=== PATIENT | female | born 1975 | race Caucasian/White ===

== ENCOUNTER 2019-03-26 11:08 | Day surgery (SDC) | payer OTHER ==
[2019-03-25 11:58] VITALS: BMI 29.7
[~2019-03-26 11:08] MED LIST: DEXAMETHASONE SOD PHOSPHATE 10 MG/ML 1 ML VIAL IV ONE; HYDROmorphone 0.5 MG/0.5 ML SYRINGE IVP PRN; LACTATED RINGERS 1,000 ML IV SCH; LIDOCAINE 1% (10MG/ML) FOR IV START INTRADERMA PRN; MIDAZOLAM 2 MG/2 ML VIAL IV PRN; ONDANSETRON 4 MG/2 ML VIAL IVP ONE; Pre Op ABX Message 1 EACH MISC MISCELLANE ONE; SCOPOLAMINE 1.5MG/72HR PATCH TRANSDERM ONE
[2019-03-26 11:39] VITALS: TEMP 98.1
[2019-03-26] MEDS ORDERED: MIDAZOLAM 2 MG/2 ML VIAL ONE (13:30)
[2019-03-26] MEDS ORDERED: ceFAZolin 1,000 MG VIAL ONE (13:30)
[2019-03-26] MEDS ORDERED: SUCCINYLCHOLINE CHLORIDE 100 MG/5 ML SYR IV ONE (13:30)
[2019-03-26] MEDS ORDERED: SODIUM CHLORIDE 0.9% 100 ML BAG ONE (13:30)
[2019-03-26] MEDS ORDERED: PROPOFOL 10 MG/ML 20 ML VIAL IV ONE (13:30)
[2019-03-26] MEDS ORDERED: LIDOCAINE 1% INJ 10MG/ML (20 ML MDV) ONE (13:30)
[2019-03-26] MEDS ORDERED: fentaNYL (PF) 50 MCG/ML 2 ML AMP ONE (13:30)
[2019-03-26] MEDS ORDERED: BUPIVACAINE-EPI 0.5%-1:200,000 10 ML VIAL SQ ONE ×2 (14:03)
[2019-03-26 14:39] VITALS: RESP 16
[2019-03-26 15:49] VITALS: BP 127/86; PULSE 88
--- NOTE | 2019-03-26 22:33 | OP ---
OPERATIVE REPORT DATE OF PROCEDURE: 03/26/2019. SURGEON: Waldo Mace M.D. PREOPERATIVE DIAGNOSES: 1. Right knee tricompartmental chondromalacia. 2. Right knee large intra-articular loose body in the anterior compartment of the knee. POSTOPERATIVE DIAGNOSES: 1. Right knee tricompartmental chondromalacia. 2. Right knee large intra-articular loose body in the anterior compartment of the knee. PROCEDURE PERFORMED: Right knee arthroscopic loose body removal. ANESTHESIA: General endotracheal. ESTIMATED BLOOD LOSS: Minimal. TOURNIQUET: None. DRAINS: None. COMPLICATIONS: None apparent. DISPOSITION: Postanesthesia care unit. INDICATIONS: Melody is a very pleasant 43-year-old female who presented to my office with right knee pain. Physical examination and x-rays are consist with fairly advanced chondromalacia of the knee, tricompartmental chondromalacia of the knee, but also a very large osseous loose body in the anterior compartment of the knee. She complains of frequent catching, locking, which when happens is relatively excruciating for her. Given her very young age with regard to proceeding with a total knee arthroplasty and her history of more mechanical symptoms in the knee, which could be certainly attributable to this large loose body, we made a recommendation for arthroscopic loose body removal. The risks were explained to the patient which include, but are not limited to risk of infection, nerve damage, bleeding, pain, and a small risk of deep vein thrombosis which could lead to fatal pulmonary embolism. She understands that there is no guarantee of this to improve her symptoms. An appropriate informed conformed consent was obtained. Examination under anesthesia: Range of motion: Right full, left full. Effusion: Right mild, left none. Jessica: Right with good end point, left with good end point. Pivot shift: Right grade 0, left grade 0. Posterior drawer: Right normal with good end point. Left normal with good end point. Varus laxity: Right none, left none. Valgus laxity: Right none, left none. External rotation: Right normal and left normal. ARTHROSCOPIC FINDINGS: Suprapatellar pouch was normal. Medial gutter normal. Lateral gutter normal. Patella: Diffuse grade 2 change. Trochlea: Diffuse grade 2 change. Medial femoral condyle. Diffuse grade 3 change, medial tibial plateau grade 4 change, medial meniscus was normal. Lateral femoral condyle diffuse grade 2-3 change. Lateral tibial plateau: Small areas of grade 4 change. Lateral meniscus was normal. Anterior cruciate ligament normal. Posterior cruciate ligament normal. Infrapatellar notch 1.5 cm osseous loose body and thickened infrapatellar plica. DETAILS OF PROCEDURE: Patient identified in preop holding area. Surgical site was marked by both the patient and myself. She was given 1 g of Ancef IV for prophylactic purposes. She was then transported to the operative suite. She was placed supine on the operative table. General anesthetic was then administered, dosed per the anesthesia without apparent complication. Examination under anesthesia was then performed of both knees. The findings noted above. The patient's right lower extremity was then prepped and draped in usual sterile fashion. Standard surgical pause undertaken to ensure that we were operating on the correct site and that appropriate preop antibiotics had been given. All staff in the room were in agreement and we proceeded. The knee was then inflated with 120 mL sterile saline solution. This was done to gradually distend the joint. Standard inferolateral portal was then made. A 30 degree arthroscope through the suprapatellar pouch. The arthroscopic pump pressure was set to 60 mmHg, maintained at that level throughout the entire case. Next utilizing an 18- gauge spinal needle to topically localize the placement, the inferomedial port was made under direct visualization. Standard diagnostic arthroscopy of the knee was then performed. The findings noted above. Attention was then drawn to the inferior notch. A very thickened inferior plica. This was released with a biter. She had obvious approximate 1.5 cm osseous loose body in the anterior compartment. I did widen the medial portal and utilized a hemostat to remove the loose body. At this point in time, no further work was deemed necessary. The knee was thoroughly irrigated and drained with an outflow cannula. The scope was removed from the knee. The arthroscopic portals were closed with 3-0 nylon interrupted suture. Sterile compressive dressing was then applied. All sponge and needle counts were deemed correct prior to closure. The patient tolerated procedure without apparent complication. The tourniquet was not inflated throughout the entire procedure. She was transferred recovery room in stable condition. MMODL / IJN: [id number] /
== END 2019-03-26 15:53 | disposition home or self-care (01) ==
LOC: OR 11:08
PROVIDERS: ATTEND Orthopaedic Surgery Sports Medicine
DX: M23.41 Loose body in knee, right knee (principal); M94.261 Chondromalacia, right knee; M17.0 Bilateral primary osteoarthritis of knee; J45.50 Severe persistent asthma, uncomplicated; J43.9 Emphysema, unspecified; G47.36 Sleep related hypoventilation in conditions classified elsewhere; F41.9 Anxiety disorder, unspecified; H91.90 Unspecified hearing loss, unspecified ear; N92.6 Irregular menstruation, unspecified; K29.20 Alcoholic gastritis without bleeding; F17.210 Nicotine dependence, cigarettes, uncomplicated; K21.9 Gastro-esophageal reflux disease without esophagitis; Z88.0 Allergy status to penicillin; Z88.8 Allergy status to other drugs, medicaments and biological substances; Z79.51 Long term (current) use of inhaled steroids; Z79.899 Other long term (current) drug therapy
CPT/HCPCS: 29874; J2250; J1100; J2405; J0690; J2001; J3010; J0330; J2704

== ENCOUNTER 2019-11-27 01:30 | Emergency (ER) | payer OTHER ==
[2019-11-27 01:41] VITALS: RESP 18; TEMP 98.7
[2019-11-27] MEDS ORDERED: DIPH,PERTUS(ACELL)TETVAC-LF 0.5 ML VIAL IM ONE (01:55)
[2019-11-27 02:36] VITALS: BP 111/76; PULSE 76
--- NOTE | 2019-11-27 02:36 | CT ---
EXAM: CT Head Without Intravenous Contrast CLINICAL HISTORY: ITS.REASON CT Reason: Head injury TECHNIQUE: Axial computed tomography images of the head/brain without intravenous contrast. CTDI is 45.285 mGy and DLP is 1064.5 mGy-cm. This CT exam was performed using one or more of the following dose reduction techniques: automated exposure control, adjustment of the mA and/or kV according to patient size, and/or use of iterative reconstruction technique. COMPARISON: No relevant prior studies available. FINDINGS: Brain: Unremarkable. No hemorrhage. No significant white matter disease. No edema. Ventricles: Unremarkable. No ventriculomegaly. Bones/joints: See below. Soft tissues: Left sided scalp laceration and hematoma. No skull fracture is seen. Sinuses: Unremarkable as visualized. No acute sinusitis. Mastoid air cells: Unremarkable as visualized. No mastoid effusion. IMPRESSION: Left scalp laceration and hematoma. No skull fracture or intracranial hemorrhage is seen. EXAM: CT Cervical Spine Without Intravenous Contrast CLINICAL HISTORY: ITS.REASON CT Reason: Head injury TECHNIQUE: Axial computed tomography images of the cervical spine without intravenous contrast. CTDI is 10.585 mGy and DLP is 298.4 mGy-cm. This CT exam was performed using one or more of the following dose reduction techniques: automated exposure control, adjustment of the mA and/or kV according to patient size, and/or use of iterative reconstruction technique. COMPARISON: No relevant prior studies available. FINDINGS: Vertebrae: Mild narrowing and osteophytosis of the atlantodental joint. The odontoid process is intact. No acute fracture. Interspaces: Mild disc space narrowing and osteophytosis at C4-5 and C5-6. Soft tissues: Unremarkable. DISCS/SPINAL CANAL/NEURAL FORAMINA: C2-C3: Unremarkable. No significant disc disease. No stenosis. C3-C4: Unremarkable. No significant disc disease. No stenosis. C4-C5: Mild spinal stenosis at C4-5 measuring 9 mm. C5-C6: Mild to moderate spinal stenosis C5-6 measuring 7 mm. There is moderate bilateral neural foraminal narrowing. C6-C7: Unremarkable. No significant disc disease. No stenosis. C7-T1: Unremarkable. No significant disc disease. No stenosis. IMPRESSION: Mild to moderate degenerative changes in the mid cervical spine. No acute fracture or subluxation is seen.
[2019-11-27] MEDS ORDERED: ACETAMINOPHEN TAB 500 MG TAB PO STA (03:06)
--- NOTE | 2019-11-27 03:08 | ED ---
Fall HPI - General Chief Complaint: Fall Stated Complaint: FALL Time Seen by Provider: 11/27/19 01:40 Source: patient, EMS Mode of arrival: EMS - History of Present Illness Initial Comments: 44-year-old female patient presents to the emergency department today for evaluation of head injury. Patient admits to drinking alcohol today. States she had a fall. She does not recall the fall. Believes she may have passed out. She is currently reporting pain to the left side of her head. Denies any neck or back pain. Denies any extremity injury. Denies any use of anticoagulants or antiplatelet medications. Patient denies any chest pain, shortness of breath, dizziness, weakness, abdominal pain, nausea, vomiting, or difficulties with bowel movements or urination. - Related Data Home Medications Medication Instructions Recorded Confirmed Albuterol Inhaler (Mhu) [Ventolin 1 - 2 puff INHALATION RT-Q6H PRN 03/25/19 03/26/19 Hfa Inhaler] Beclomethasone Dip 80 Mcg/Puff 1 puff INHALATION BID 03/25/19 03/26/19 [Qvar 80 mcg] Famotidine [Pepcid] 20 mg PO HS 03/25/19 03/26/19 Ibuprofen [Motrin] 600 mg PO Q8HR PRN 03/25/19 03/26/19 Montelukast [Singulair] 10 mg PO HS 03/25/19 03/26/19 hydrOXYzine pamoate [Vistaril] 25 mg PO HS 03/25/19 03/26/19 Previous Rx's Medication Instructions Recorded Aspirin 325 mg PO DAILY #14 tab 03/26/19 Hydrocodone/Acetaminophen [[place] 1 tab PO Q4-6H PRN #15 tab 03/26/19 5-325] Allergies Allergy/AdvReac Type Severity Reaction Status Date / Time Penicillins Allergy Unknown Hives, Verified 03/26/19 11:39 Fever, Swellingand unknown other reaction Review of Systems ROS Statement: Those systems with pertinent positive or pertinent negative responses have been documented in the HPI. ROS Other: All systems not noted in ROS Statement are negative. Past Medical History Past Medical History: Asthma, GERD/Reflux, Sleep Apnea/CPAP/BIPAP Additional Past Medical History / Comment(s): scoliosis, back pain, frequent diarrhea, wearing brace right knee. History of Any Multi-Drug Resistant Organisms: None Reported Past Surgical History: No Surgical Hx Reported Past Anesthesia/Blood Transfusion Reactions: Motion Sickness Additional Past Anesthesia/Blood Transfusion Reaction / Comment(s): patient has never received anesthesia. Past Psychological History: Anxiety Past Alcohol Use History: Daily Past Drug Use History: None Reported - Past Family History Mother Family Medical History: Unable to Obtain Additional Family Medical History / Comment(s): pt states unknown family hx. General Exam Limitations: no limitations General appearance: alert, in no apparent distress, other (This is a well- developed, well-nourished adult female patient in no acute distress. Vital signs upon presentation are temperature 98.7F, pulse 100, respirations 18. Blood pressure 140/96, pulse ox 96% on room air.) Head exam: Present: other (There is hematoma noted to the left parietal scalp, small abrasion noted. No active bleeding.) Eye exam: Present: normal appearance, PERRL, EOMI. Absent: scleral icterus, conjunctival injection, periorbital swelling ENT exam: Present: normal exam, normal oropharynx, mucous membranes moist Neck exam: Present: normal inspection, full ROM, other (Nontender, no step-off, no deformity to firm midline palpation of the posterior cervical spine. Full range of motion without pain or limitation.). Absent: tenderness, meningismus, lymphadenopathy Respiratory exam: Present: normal lung sounds bilaterally. Absent: respiratory distress, wheezes, rales, rhonchi, stridor Cardiovascular Exam: Present: regular rate, normal rhythm, normal heart sounds. Absent: systolic murmur, diastolic murmur, rubs, gallop, clicks GI/Abdominal exam: Present: soft, normal bowel sounds. Absent: distended, tenderness, guarding, rebound, rigid Back exam: Present: normal inspection, other (Nontender, no step-off, no deformity to firm midline palpation of the thoracic and lumbar vertebrae. Full range of motion without pain or limitation.). Absent: vertebral tenderness Neurological exam: Present: alert, oriented X3, CN II-XII intact Psychiatric exam: Present: normal affect, normal mood Skin exam: Present: warm, dry, intact, normal color. Absent: rash Course Vital Signs 11/27/19 11/27/19 01:31 02:36 Temperature 98.7 F Pulse Rate 100 76 Respiratory 18 18 Rate Blood Pressure 140/96 111/76 O2 Sat by Pulse 96 98 Oximetry Medical Decision Making - Medical Decision Making 44-year-old female patient, intoxicated, presents to the emergency department today for evaluation of head injury. Physical examination did reveal hematoma to the left parietal scalp with small abrasion. No active bleeding. No dental tenderness. She is answering questions appropriately. She is able to ambulate. CT brain and C-spine was obtained and was negative for intracranial hemorrhage or other acute abnormalities. Did show hematoma with laceration changes. Inspection of the scalp did reveal small abrasion. No laceration noted. She'll be discharged with her primary care physician for recheck in 1-2 days. Return parameters were discussed in detail. She verbalizes understanding and agrees this plan. Patient does have a ride home. - Radiology Data Radiology results: report reviewed, image reviewed CT brain without contrast was obtained. Report was reviewed it its entirety. Impression by Dr. Perez shows left scalp laceration hematoma. No skull fracture or intracranial hemorrhage is seen. CT C-spine without contrast was obtained. Report was reviewed in its entirety. Impression by Dr. Perez shows mild to moderate joint of changes in the mid cervical spine. No acute fracture or subluxation is seen. Disposition Clinical Impression: Head injury, Scalp hematoma Disposition: HOME SELF-CARE Condition: Good Instructions (If sedation given, give patient instructions): Head Injury (ED), Hematoma (ED) Additional Instructions: Apply ice to the scalp for swelling. Take Tylenol for pain control. Follow-up with your primary care physician for recheck in 1-2 days. Return to the emergency department immediately for any new, worsening, or concerning symptoms. Is patient prescribed a controlled substance at d/c from ED?: No Referrals: None,Stated [Primary Care Provider] - 1-2 days Time of Disposition: 03:08
== END 2019-11-27 03:38 | disposition home or self-care (01) ==
LOC: EC 01:30
DX: S00.03XA Contusion of scalp, initial encounter (principal); J45.909 Unspecified asthma, uncomplicated; K21.9 Gastro-esophageal reflux disease without esophagitis; G47.30 Sleep apnea, unspecified; F10.129 Alcohol abuse with intoxication, unspecified; F41.9 Anxiety disorder, unspecified; Z23 Encounter for immunization; Z79.899 Other long term (current) drug therapy; Z79.51 Long term (current) use of inhaled steroids; Z99.89 Dependence on other enabling machines and devices; Z88.0 Allergy status to penicillin; W18.39XA Other fall on same level, initial encounter
CPT/HCPCS: 70450; 72125; 90471; 90715; 99284

== ENCOUNTER 2019-12-31 17:06 | Inpatient (IN) | payer MEDICAID, OTHER ==
[2019-12-31 17:16] LABS: Glucose,Whole Blood 124 mg/dL (75-99)
[2019-12-31] MEDS ORDERED: SODIUM CHLORIDE 0.9% 1,000 ML IV STA (17:21)
[2019-12-31] MEDS ORDERED: SODIUM CHLORIDE 0.9% 500 ML 500 ML IV STA (17:21)
--- NOTE | 2019-12-31 17:22 | ED ---
Overdose HPI - General Source: EMS, RN notes reviewed, old records reviewed Mode of arrival: EMS Limitations: no limitations - History of Present Illness MD Complaint: intentional overdose -: unknown Intent: suicide attempt How Overdose Was Discovered: called family/friend Associated Symptoms: depression Treatments Prior to Arrival: none <Parish Leggtet - Last Filed: 12/31/19 20:33> <Yobani Stiles - Last Filed: 01/01/20 02:30> - General Chief Complaint: Overdose Stated Complaint: overdose Time Seen by Provider: 12/31/19 17:08 - History of Present Illness Initial Comments: This is a 44-year-old female intentional overdose. Significant alcohol intoxication severe tramadol overdose tonight. Seizure precautions a prior. Patient is somnolent but responsive, breathing appropriately. Oxygen levels are normal. Patient did take overdose and suicide attempt (Parish Leggett) - Related Data Home Medications Medication Instructions Recorded Confirmed Famotidine [Pepcid] 20 mg PO HS 03/25/19 12/31/19 Ibuprofen [Motrin] 600 mg PO Q8HR PRN 03/25/19 12/31/19 Montelukast [Singulair] 10 mg PO HS 03/25/19 12/31/19 hydrOXYzine pamoate [Vistaril] 25 mg PO BID PRN 03/25/19 12/31/19 Albuterol Sulfate [Ventolin HFA] 2 puff INHALATION RT-Q6H PRN 12/31/19 12/31/19 Beclomethasone Dipropionate [Qvar 1 puff INHALATION RT-BID 12/31/19 12/31/19 80mcg Redihaler] DULoxetine HCL [Cymbalta] 20 mg PO BID 12/31/19 12/31/19 traMADol HCL 50 mg PO Q4-6H PRN 12/31/19 12/31/19 Allergies Allergy/AdvReac Type Severity Reaction Status Date / Time Penicillins Allergy Unknown Hives, Verified 12/31/19 17:51 Fever, Swellingand unknown other reaction Review of Systems ROS Other: All systems not noted in ROS Statement are negative. <Parish Leggett - Last Filed: 12/31/19 20:33> ROS Other: All systems not noted in ROS Statement are negative. <Yobani Stiles - Last Filed: 01/01/20 02:30> ROS Statement: Those systems with pertinent positive or pertinent negative responses have been documented in the HPI. Past Medical History Past Medical History: Asthma, GERD/Reflux, Sleep Apnea/CPAP/BIPAP Additional Past Medical History / Comment(s): scoliosis, back pain, frequent diarrhea, wearing brace right knee. History of Any Multi-Drug Resistant Organisms: None Reported Past Surgical History: No Surgical Hx Reported Past Anesthesia/Blood Transfusion Reactions: Motion Sickness Additional Past Anesthesia/Blood Transfusion Reaction / Comment(s): patient has never received anesthesia. Past Psychological History: Anxiety Smoking Status: Current some day smoker Past Alcohol Use History: Daily Past Drug Use History: None Reported - Past Family History Mother Family Medical History: Unable to Obtain Additional Family Medical History / Comment(s): pt states unknown family hx. <Parish Leggett - Last Filed: 12/31/19 20:33> General Exam Limitations: altered mental status General appearance: alert, appears intoxicated, anxious, lethargic, in distress Head exam: Present: atraumatic, normocephalic, normal inspection Eye exam: Present: normal appearance, PERRL, EOMI. Absent: scleral icterus, co njunctival injection, periorbital swelling ENT exam: Present: normal exam, mucous membranes moist Neck exam: Present: normal inspection. Absent: tenderness, meningismus, lymphadenopathy Respiratory exam: Present: normal lung sounds bilaterally. Absent: respiratory distress, wheezes, rales, rhonchi, stridor Cardiovascular Exam: Present: regular rate, normal rhythm, normal heart sounds. Absent: systolic murmur, diastolic murmur, rubs, gallop, clicks GI/Abdominal exam: Present: soft, normal bowel sounds. Absent: distended, tenderness, guarding, rebound, rigid Extremities exam: Present: normal inspection, full ROM, normal capillary refill. Absent: tenderness, pedal edema, joint swelling, calf tenderness Back exam: Present: normal inspection Neurological exam: Present: alert, oriented X3, CN II-XII intact Psychiatric exam: Present: normal affect, normal mood Skin exam: Present: warm, dry, intact, normal color. Absent: rash <Parish Leggett - Last Filed: 12/31/19 20:33> Course <Parish Leggett - Last Filed: 12/31/19 20:33> <Yobani Stiles - Last Filed: 01/01/20 02:30> Vital Signs 12/31/19 12/31/19 12/31/19 17:08 17:37 21:15 Temperature 98.0 F Pulse Rate 98 101 H 89 Respiratory 16 16 18 Rate Blood Pressure 144/129 139/104 127/84 O2 Sat by Pulse 89 L 96 97 Oximetry 12/31/19 22:49 Temperature Pulse Rate 86 Respiratory 18 Rate Blood Pressure 130/83 O2 Sat by Pulse 97 Oximetry - Reevaluation(s) Reevaluation #1: 12/31/19 20:35 mediclal record reviewed (Parish Leggett) Reevaluation #2: 12/31/19 20:35 Patient medically clear for psychiatric evaluation at midnight tonight (Parish Leggett) Reevaluation #3: 01/01/20 02:29 I did see this patient's conducting interview for purpose of following the clinical certification (Yobani Stiles) Medical Decision Making - Lab Data Result diagrams: 12/31/19 17:24 12/31/19 17:24 - EKG Data -: EKG Interpreted by Me (EKG shows sinus rhythm 100, MO 160 QRS 86 QTc 482) <Parish Leggett - Last Filed: 12/31/19 20:33> - Lab Data Result diagrams: 12/31/19 17:24 12/31/19 17:24 <Yobani Stiles - Last Filed: 01/01/20 02:30> - Lab Data Lab Results 12/31/19 12/31/19 12/31/19 Range/Units 17:14 17:24 17:24 WBC 11.7 H (3.8-10.6) k/uL RBC 5.38 (3.80-5.40) m/uL Hgb 17.3 H (11.4-16.0) gm/dL Hct 51.4 H (34.0-46.0) % MCV 95.7 (80.0-100.0) fL MCH 32.1 (25.0-35.0) pg MCHC 33.5 (31.0-37.0) g/dL RDW 12.8 (11.5-15.5) % Plt Count 165 (150-450) k/uL MPV 11.2 Neutrophils % 62 % Lymphocytes % 28 % Monocytes % 6 % Eosinophils % 1 % Basophils % 2 % Neutrophils # 7.2 (1.3-7.7) k/uL Lymphocytes # 3.3 (1.0-4.8) k/uL Monocytes # 0.7 (0-1.0) k/uL Eosinophils # 0.1 (0-0.7) k/uL Basophils # 0.2 (0-0.2) k/uL Sodium 136 L (137-145) mmol/L Potassium 3.8 (3.5-5.1) mmol/L Chloride 102 (98-107) mmol/L Carbon Dioxide 21 L (22-30) mmol/L Anion Gap 13 mmol/L BUN 6 L (7-17) mg/dL Creatinine 0.44 L (0.52-1.04) mg/dL Est GFR (CKD-EPI)AfAm >90 (>60 ml/min/1.73 sqM) Est GFR (CKD-EPI)NonAf >90 (>60 ml/min/1.73 sqM) Glucose 135 H (74-99) mg/dL POC Glucose (mg/dL) 124 H (75-99) mg/dL POC Glu Floral Clerk ID Kristi Cohn Calcium 9.3 (8.4-10.2) mg/dL Total Bilirubin 0.4 (0.2-1.3) mg/dL AST 40 H (14-36) U/L ALT 62 H (4-34) U/L Alkaline Phosphatase 89 (38-126) U/L Creatine Kinase 29 L (30-135) U/L CK-MB (CK-2) (0.0-2.4) ng/mL Total Protein 7.5 (6.3-8.2) g/dL Albumin 4.4 (3.5-5.0) g/dL Urine HCG, Qual (Not Detectd) Salicylates <1.0 mg/dL Urine Opiates Screen (NotDetected) Ur Oxycodone Screen (NotDetected) Urine Methadone Screen (NotDetected) Ur Propoxyphene Screen (NotDetected) Acetaminophen <10.0 ug/mL Ur Barbiturates Screen (NotDetected) U Tricyclic Antidepress (NotDetected) Ur Phencyclidine Scrn (NotDetected) Ur Amphetamines Screen (NotDetected) U Methamphetamines Scrn (NotDetected) U Benzodiazepines Scrn (NotDetected) Urine Cocaine Screen (NotDetected) U Marijuana (THC) Screen (NotDetected) Serum Alcohol 216 H* mg/dL 12/31/19 12/31/19 12/31/19 Range/Units 17:24 17:36 17:36 WBC (3.8-10.6) k/uL RBC (3.80-5.40) m/uL Hgb (11.4-16.0) gm/dL Hct (34.0-46.0) % MCV (80.0-100.0) fL MCH (25.0-35.0) pg MCHC (31.0-37.0) g/dL RDW (11.5-15.5) % Plt Count (150-450) k/uL MPV Neutrophils % % Lymphocytes % % Monocytes % % Eosinophils % % Basophils % % Neutrophils # (1.3-7.7) k/uL Lymphocytes # (1.0-4.8) k/uL Monocytes # (0-1.0) k/uL Eosinophils # (0-0.7) k/uL Basophils # (0-0.2) k/uL Sodium (137-145) mmol/L Potassium (3.5-5.1) mmol/L Chloride (98-107) mmol/L Carbon Dioxide (22-30) mmol/L Anion Gap mmol/L BUN (7-17) mg/dL Creatinine (0.52-1.04) mg/dL Est GFR (CKD-EPI)AfAm (>60 ml/min/1.73 sqM) Est GFR (CKD-EPI)NonAf (>60 ml/min/1.73 sqM) Glucose (74-99) mg/dL POC Glucose (mg/dL) (75-99) mg/dL POC Glu Floral Clerk ID Calcium (8.4-10.2) mg/dL Total Bilirubin (0.2-1.3) mg/dL AST (14-36) U/L ALT (4-34) U/L Alkaline Phosphatase (38-126) U/L Creatine Kinase (30-135) U/L CK-MB (CK-2) <0.2 (0.0-2.4) ng/mL Total Protein (6.3-8.2) g/dL Albumin (3.5-5.0) g/dL Urine HCG, Qual Not Detected (Not Detectd) Salicylates mg/dL Urine Opiates Screen Not Detected (NotDetected) Ur Oxycodone Screen Not Detected (NotDetected) Urine Methadone Screen Not Detected (NotDetected) Ur Propoxyphene Screen Not Detected (NotDetected) Acetaminophen ug/mL Ur Barbiturates Screen Not Detected (NotDetected) U Tricyclic Antidepress Not Detected (NotDetected) Ur Phencyclidine Scrn Not Detected (NotDetected) Ur Amphetamines Screen Not Detected (NotDetected) U Methamphetamines Scrn Not Detected (NotDetected) U Benzodiazepines Scrn Not Detected (NotDetected) Urine Cocaine Screen Detected H (NotDetected) U Marijuana (THC) Screen Not Detected (NotDetected) Serum Alcohol mg/dL Disposition <Parish Leggett - Last Filed: 12/31/19 20:33> <Yobani Stiles - Last Filed: 01/01/20 02:30> Clinical Impression: Mood disorder Disposition: ADMITTED IP TO THIS [facility] Condition: Fair Referrals: None,Stated [Primary Care Provider] - 1-2 days
[2019-12-31 17:34] LABS: Basophils # (A) 0.2 k/uL (0-0.2); Basophils % (A) 2 %; Eosinophils # (A) 0.1 k/uL (0-0.7); Eosinophils % (A) 1 %; HCT 51.4 % (34.0-46.0); HGB 17.3 gm/dL (11.4-16.0); Lymphocytes # (A) 3.3 k/uL (1.0-4.8); Lymphocytes % (A) 28 %; MCH 32.1 pg (25.0-35.0); MCHC 33.5 g/dL (31.0-37.0); MCV 95.7 fL (80.0-100.0); Mean Platelet Volume 11.2; Monocytes # (A) 0.7 k/uL (0-1.0); Monocytes % (A) 6 %; Neutrophils # (A) 7.2 k/uL (1.3-7.7); Neutrophils % (A) 62 %; Platelet Count 165 k/uL (150-450); RBC 5.38 m/uL (3.80-5.40); RDW 12.8 % (11.5-15.5); WBC 11.7 k/uL (3.8-10.6)
[2019-12-31 17:44] LABS: ALT 62 U/L (4-34); AST 40 U/L (14-36); Acetaminophen <10.0 ug/mL; African American GFR (CKD) >90 (>60 ml/min/1.73 sqM); Albumin 4.4 g/dL (3.5-5.0); Alkaline Phosphatase 89 U/L (38-126); Anion Gap 13 mmol/L; Blood Urea Nitrogen 6 mg/dL (7-17); Calcium 9.3 mg/dL (8.4-10.2); Carbon Dioxide 21 mmol/L (22-30); Chloride 102 mmol/L (98-107); Creatine Kinase 29 U/L (30-135); Glucose 135 mg/dL (74-99); Non-African American GFR(CKD) >90 (>60 ml/min/1.73 sqM); Potassium 3.8 mmol/L (3.5-5.1); Salicylate <1.0 mg/dL; Sodium 136 mmol/L (137-145); Total Bilirubin 0.4 mg/dL (0.2-1.3); Total Protein 7.5 g/dL (6.3-8.2)
[2019-12-31 17:55] LABS: Alcohol 216 mg/dL
[2019-12-31 18:02] LABS: Amphetamine Screen,Urine Not Detected (NotDetected); Barbiturate Screen,Urine Not Detected (NotDetected); Benzodiazepines Screen,Urine Not Detected (NotDetected); Cocaine Screen,Urine Detected (NotDetected); Methadone Screen, Urine Not Detected (NotDetected); Opiate Screen,Urine Not Detected (NotDetected); Oxycodone Screen, Urine Not Detected (NotDetected); Phencyclidine Screen,Urine Not Detected (NotDetected); Tricyclic Antidepressant,Urine Not Detected (NotDetected); Urn Cannabinoid Scrn Not Detected (NotDetected)
[2019-12-31] MEDS ORDERED: NICOTINE 21MG/24HR PATCH TRANSDERM STA (21:08)
[2020-01-01] MEDS ORDERED: hydrOXYzine pamoate 25 MG CAP PO PRN (03:54)
[2020-01-01] MEDS ORDERED: MAGNESIUM HYDROXIDE 2,400 MG/10 ML CUP PO PRN (03:54)
[2020-01-01] MEDS ORDERED: LORazepam 1 MG TAB PO PRN ×2 (03:54→10:11)
[2020-01-01] MEDS ORDERED: IBUPROFEN 600 MG TAB PO PRN (03:54)
[2020-01-01] MEDS ORDERED: MAG HYDROX/AL HYDROX/SIMETH 30 ML CUP PO PRN (03:54)
[2020-01-01] MEDS ORDERED: ALBUTEROL HFA INHALER INHALATION PRN (03:54)
[2020-01-01] MEDS ORDERED: HALOPERIDOL LACTATE 5 MG/ML 1 ML VIAL IM PRN (04:02)
[2020-01-01] MEDS ORDERED: haloperidoL 1 MG TAB PO PRN (04:02)
[2020-01-01] MEDS: FLUTICASONE 110 MCG INHALER INHALATION SCH ×3 (08:24→21:31)
[2020-01-01] MEDS: NICOTINE 21MG/24HR PATCH TRANSDERM SCH (08:25)
[2020-01-01] MEDS ORDERED: DULoxetine HCL 20 MG CAPSULE.DR PO SCH (09:00)
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
[2020-01-01] MEDS: ACAMPROSATE CALCIUM 333 MG TABLET.DR PO SCH ×2 (16:58→21:32)
[2020-01-01] MEDS: MONTELUKAST 10 MG TAB PO SCH (21:32)
[2020-01-01] MEDS: DULoxetine HCL 30 MG CAPSULE.DR PO SCH (21:32)
[2020-01-01] MEDS: FAMOTIDINE 20 MG TAB PO SCH (21:32)
[2020-01-01] MEDS: ACETAMINOPHEN TAB 325 MG TAB PO PRN (21:32)
--- NOTE | 2020-01-01 21:54 | P.CONS ---
History of Present Illness - History of Present Illness This is a pleasant 44 years old female with past medical history of asthma, G ERD, sleep apnea on CPAP and BiPAP, scoliosis with back pain, anxiety and cigarette smoking. Patient was admitted to the mental health unit for signs symptoms of major depressive disorders with alcohol and nicotine abuse. Medical consult was requested for routine medical management. Patient was lying in bed, looks depressed, minimally interactive however she denies any specific symptoms, no chest pain or dyspnea or change in urine or bowel habits. No fever She admits to smoking 1 pack per day, patient is counseled and she agrees to quit smoking and agrees to nicotine patch She drinks 4-6 beers per day Urine test not detected. Labs showing mild leukocytosis of 11.7 with hemoglobin 17.3, platelet is normal. Most likely hemoconcentration. Sodium is 136, creatinine normal 0.4. Liver enzymes are slightly elevated mostly secondary to alcohol effect. She's been instructed screen is positive for cocaine, alcohol level was elevated at 2.6 on admission, barillas virus not detec gabriel EKG showing normal sinus rhythm at [address]-T changes. Chest x-ray: No acute process. Review of Systems CONSTITUTIONAL: No fever, no malaise, no fatigue. HEENT: No recent visual problems or hearing problems. Denied any sore throat. CARDIOVASCULAR: No orthopnea, PND, no palpitations, no syncope. PULMONARY: No shortness of breath, no cough, no hemoptysis. GASTROINTESTINAL: No diarrhea, no nausea, no vomiting, no abdominal pain. Normoactive bowel sounds. NEUROLOGICAL: No headaches, no weakness, no numbness. HEMATOLOGICAL: Denies any bleeding or petechiae. GENITOURINARY: Denies any burning micturition, frequency, or urgency. MUSCULOSKELETAL/RHEUMATOLOGICAL: Denies any joint pain, swelling, or any muscle pain. ENDOCRINE: Denies any polyuria or polydipsia. Past Medical History Past Medical History: Asthma, GERD/Reflux, Sleep Apnea/CPAP/BIPAP Additional Past Medical History / Comment(s): scoliosis, back pain, frequent diarrhea, wearing brace right knee. History of Any Multi-Drug Resistant Organisms: None Reported Past Surgical History: No Surgical Hx Reported Past Anesthesia/Blood Transfusion Reactions: Motion Sickness Additional Past Anesthesia/Blood Transfusion Reaction / Comm: patient has never received anesthesia. Past Psychological History: Anxiety Smoking Status: Current some day smoker Past Alcohol Use History: Daily Additional Past Alcohol Use History / Comment(s): quit smoking 3 days ago, smoked 1 ppd, started smoking age 9. quit drinking 3 days ago- states she was drinking 4-6 12oz beers daily. Past Drug Use History: None Reported - Past Family History Mother Family Medical History: Unable to Obtain Additional Family Medical History / Comment(s): pt states unknown family hx. Medications and Allergies Home Medications Medication Instructions Recorded Confirmed Type Famotidine [Pepcid] 20 mg PO HS 03/25/19 12/31/19 History Ibuprofen [Motrin] 600 mg PO Q8HR PRN 03/25/19 12/31/19 History Montelukast [Singulair] 10 mg PO HS 03/25/19 12/31/19 History hydrOXYzine pamoate [Vistaril] 25 mg PO BID PRN 03/25/19 12/31/19 History Albuterol Sulfate [Ventolin HFA] 2 puff INHALATION RT-Q6H PRN 12/31/19 12/31/19 History Beclomethasone Dipropionate [Qvar 1 puff INHALATION RT-BID 12/31/19 12/31/19 History 80mcg Redihaler] DULoxetine HCL [Cymbalta] 20 mg PO BID 12/31/19 12/31/19 History traMADol HCL 50 mg PO Q4-6H PRN 12/31/19 12/31/19 History Allergies Allergy/AdvReac Type Severity Reaction Status Date / Time Penicillins Allergy Unknown Hives, Verified 12/31/19 17:51 Fever, Swellingand unknown other reaction Physical Exam Vitals: Vital Signs Temp Pulse Pulse Resp BP BP Pulse Ox 01/01/20 17:06 97.6 F 96 16 130/77 01/01/20 12:57 97.3 F L 01/01/20 06:35 97.6 F 116 H 18 169/92 94 L 01/01/20 02:48 94 18 134/74 96 12/31/19 22:49 86 18 130/83 97 12/31/19 21:15 89 18 127/84 97 Intake and Output 01/01/20 01/01/20 01/01/20 06:59 14:59 22:59 Other: Weight 65.8 kg GENERAL: The patient is alert and oriented x3, not in any acute distress. Well d eveloped, well nourished. HEENT: Pupils are round and equally reacting to light. EOMI. No scleral icterus. No conjunctival pallor. Normocephalic, atraumatic. No pharyngeal erythema. No thyromegaly. CARDIOVASCULAR: S1 and S2 present. No murmurs, rubs, or gallops. PULMONARY: Chest is clear to auscultation, no wheezing or crackles. ABDOMEN: Soft, nontender, nondistended, normoactive bowel sounds. No palpable organomegaly. MUSCULOSKELETAL: No joint swelling or deformity. EXTREMITIES: No cyanosis, clubbing, or pedal edema. NEUROLOGICAL: Gross neurological examination did not reveal any focal deficits. SKIN: No rashes. No petechiae Results CBC & Chem 7: 12/31/19 17:24 12/31/19 17:24 Labs: Abnormal Lab Results - Last 24 Hours (Table) 12/31/19 12/31/19 Range/Units 17:24 17:36 Sodium 136 L (137-145) mmol/L Carbon Dioxide 21 L (22-30) mmol/L BUN 6 L (7-17) mg/dL Creatinine 0.44 L (0.52-1.04) mg/dL Glucose 135 H (74-99) mg/dL AST 40 H (14-36) U/L ALT 62 H (4-34) U/L Creatine Kinase 29 L (30-135) U/L Urine Cocaine Screen Detected H (NotDetected) Serum Alcohol 216 H* mg/dL Assessment and Plan Assessment: -To percussion and other psychiatric illnesses, management as per primary site team -Nicotine dependence, patient is counseled, continue with nicotine -Alcohol abuse, continue with CIWA protocol and thiamin -Mild leukocytosis, mostly hemoconcentration. Patient is mildly dehydration and encourage oral hydration -Mildly elevated liver enzymes, mostly secondary to alcohol effect Chronic asthma, not in activation History of GERD sleep apnea scoliosis with chronic back pain DVT prophylaxis: Patient is low risk as she is mobile, no need for heparin continue with mechanical we recommend patient follow up with her PCP within one week after discharge, patient was instructed with the same Labs. Repeat CBC and liver enzymes. Thank you for consulting us, we will see the patient on as needed basis. Please feel free to contact us for any further questions
[2020-01-01 22:38] LABS: Basophils # (A) 0.1 k/uL (0-0.2); Basophils % (A) 1 %; Eosinophils # (A) 0.2 k/uL (0-0.7); Eosinophils % (A) 2 %; HCT 45.3 % (34.0-46.0); HGB 14.6 gm/dL (11.4-16.0); Lymphocytes # (A) 2.2 k/uL (1.0-4.8); Lymphocytes % (A) 21 %; MCH 31.1 pg (25.0-35.0); MCHC 32.3 g/dL (31.0-37.0); MCV 96.3 fL (80.0-100.0); Mean Platelet Volume 11.2; Monocytes # (A) 0.7 k/uL (0-1.0); Monocytes % (A) 7 %; Neutrophils # (A) 7.4 k/uL (1.3-7.7); Neutrophils % (A) 68 %; Platelet Count 133 k/uL (150-450); RDW 13.1 % (11.5-15.5); WBC 10.8 k/uL (3.8-10.6)
[2020-01-01 22:43] LABS: ALT 47 U/L (4-34); AST 35 U/L (14-36); Albumin 3.1 g/dL (3.5-5.0); Alkaline Phosphatase 80 U/L (38-126); Bilirubin, Delta 0.1 mg/dL (0.0-0.2); Bilirubin,Unconjugated 0.3 mg/dL (0.0-1.1); Total Bilirubin 0.4 mg/dL (0.2-1.3); Total Protein 5.5 g/dL (6.3-8.2)
[2020-01-01 23:16] LABS: HCG,Qualitative Serum Not Detected
[2020-01-02 00:34] LABS: Large Platelets Present
[2020-01-02] MEDS: THIAMINE 100 MG TAB PO SCH (08:47)
[2020-01-02] MEDS: DULoxetine HCL 30 MG CAPSULE.DR PO SCH (08:47)
[2020-01-02] MEDS: NICOTINE 21MG/24HR PATCH TRANSDERM SCH (08:47)
[2020-01-02] MEDS: MULTIVITAMINS, THERA 1 EACH TAB PO SCH (08:47)
[2020-01-02] MEDS: ACAMPROSATE CALCIUM 333 MG TABLET.DR PO SCH ×3 (08:47→20:35)
[2020-01-02] MEDS: ACETAMINOPHEN TAB 325 MG TAB PO PRN ×2 (08:50→16:24)
[2020-01-02] MEDS: FLUTICASONE 110 MCG INHALER INHALATION SCH ×2 (09:16→20:22)
--- NOTE | 2020-01-02 09:35 | P.PN ---
Progress Note - Text Progress Note Date: 01/02/20 Interval History: Patient was seen wandering the hallways and was directable and agreeable to speak with television writer in the office. She expresses that she feels "eh" and tired. She is not reporting any suicidal or homicidal ideation, intention, and/or plan at this time. She reports no auditory or visual hallucinations. She reports low energy and feeling very sedated. She reports that the pain in her knees is bad but that she has been able to get out of bed and walk around. She has been adherent with her medications and reports some sedation as a side effect. She denies any issues with appetite. She reports sleep is difficult due to the milieu. Mental Status Exam: General Appearance: Patient appears to be stated age is alert, directable, and attempts to cooperate. Patient is short in height. Patient appears disheveled. Behavior: Patient is seated without any agitated behavior. Patient is resting in bed comfortably. Eye contact is fair. Speech: Patient's speech is fluent and nonpressured. Low in volume and spontaneous Mood/Affect: Patient reports their mood is "tired", affect is euthymic with increased range today.. Suicidality/Homicidality: Patient denies any suicidal or homicidal ideation, intention, and/or plan. Perceptions: Patient denies any visual hallucinations and denies any auditory hallucinations Though content/process: There is no evidence of any delusional thought content and thought process is linear and goal-directed. Memory and concentration: AOX3, grossly intact for the purposes of this session. Can spell "WORLD" backwards Judgment and insight: Fair Assessment Major depressive disorder, recurrent, severe Alcohol use disorder Tobacco use disorder Plan: -Patient continues to meet criteria for inpatient psychiatric admission for symptom stabilization and safety. Patient has signed adult voluntary form and medication consent and was placed in patient's chart. -Medications: Increase Cymbalta to 30 mg by mouth every morning, and 60 mg by mouth daily at bedtime to address depression/pain Continue Campral 333 mg 3 times a day for alcohol use disorder Thiamin, multivitamin for Etoh use -When necessary Ativan and Geodon for agitation/aggression. -NRT - nicotine patch -SW on board for discharge planning. Encouraged the patient to participate in milieu.
[2020-01-02] MEDS: DULoxetine HCL 60 MG CAPSULE.DR PO SCH (20:23)
[2020-01-02] MEDS: FAMOTIDINE 20 MG TAB PO SCH (20:23)
[2020-01-02] MEDS: MONTELUKAST 10 MG TAB PO SCH (20:23)
[2020-01-03] MEDS: NICOTINE 21MG/24HR PATCH TRANSDERM SCH (09:01)
[2020-01-03] MEDS: DULoxetine HCL 30 MG CAPSULE.DR PO SCH (09:01)
[2020-01-03] MEDS: ACAMPROSATE CALCIUM 333 MG TABLET.DR PO SCH ×3 (09:01→20:40)
[2020-01-03] MEDS: MULTIVITAMINS, THERA 1 EACH TAB PO SCH (09:01)
[2020-01-03] MEDS: THIAMINE 100 MG TAB PO SCH (09:01)
[2020-01-03] MEDS: FLUTICASONE 110 MCG INHALER INHALATION SCH ×2 (09:01→20:38)
[2020-01-03 09:50] LABS: Albumin 3.7 g/dL (3.5-5.0); Bilirubin, Delta 0.2 mg/dL (0.0-0.2); Bilirubin,Unconjugated 0.4 mg/dL (0.0-1.1); Total Bilirubin 0.6 mg/dL (0.2-1.3); Total Protein 6.4 g/dL (6.3-8.2)
[2020-01-03 13:38] LABS: Hemoglobin A1C 7.1 % (4.0-6.0)
--- NOTE | 2020-01-03 13:50 | P.PN ---
Progress Note - Text Progress Note Date: 01/03/20 Clinical Problems: Major depressive disorder recurrent severe, alcohol use disorder severe, tobacco use disorder Interim history: I reviewed the medical record and interviewed the patient. She denied problems or concerns. She denied that she feels depressed or has thoughts of or suicide. She also denied experiencing alcohol withdrawal symptoms. [facility] assessments were stopped yesterday due to minimal alcohol withdrawal symptoms. She slept 7 hours and has attended therapeutic groups and activities intermittently. Mental status exam: She presented as a short 44-year-old female who was pleasant on approach. She made eye contact and appeared to attend to the interview. She had a sad facial expression. She was alert and oriented to person, place and time. She had psychomotor retardation but no abnormal involuntary movements. Her speech was spontaneous with decreased rate and volume. Her affect was depressed and not reactive. She did not express suicidal ideation or wishes. She did not express ideas reference, paranoid ideation or delusions. Her thinking was concrete. Associations were coherent, logical and goal directed. She did not appear to be responding to internal stimuli. Assessment: She continues to have symptoms of depression currently denying suicidal ideation or wishes. Plan: Continue inpatient treatment. Safety precautions. Continue current medications-Cymbalta 90 mg per day, Vistaril 25 mg twice a day when necessary for anxiety, and Ativan 1 mg by mouth 3 times a day for anxiety and alcohol withdrawal. Encourage participation in therapeutic groups and activities. Evaluate clinical status response to treatment daily basis.
[2020-01-03] MEDS: FAMOTIDINE 20 MG TAB PO SCH (20:39)
[2020-01-03] MEDS: DULoxetine HCL 60 MG CAPSULE.DR PO SCH (20:39)
[2020-01-03] MEDS: MONTELUKAST 10 MG TAB PO SCH (20:39)
[2020-01-04 06:27] VITALS: RESP 17
[2020-01-04] MEDS: NICOTINE 21MG/24HR PATCH TRANSDERM SCH (09:03)
[2020-01-04] MEDS: ACAMPROSATE CALCIUM 333 MG TABLET.DR PO SCH ×3 (09:03→21:05)
[2020-01-04] MEDS: MULTIVITAMINS, THERA 1 EACH TAB PO SCH (09:03)
[2020-01-04] MEDS: DULoxetine HCL 30 MG CAPSULE.DR PO SCH (09:03)
[2020-01-04] MEDS: THIAMINE 100 MG TAB PO SCH (09:03)
[2020-01-04] MEDS: FLUTICASONE 110 MCG INHALER INHALATION SCH ×2 (09:25→21:03)
--- NOTE | 2020-01-04 12:34 | P.PN ---
Progress Note - Text Progress Note Date: 01/04/20 Clinical Problems: Major depressive disorder recurrent severe, alcohol use disorder severe, tobacco use disorder Interim history: I reviewed the medical record and interviewed the patient. She denied problems or concerns. She denied that she feels depressed or has thoughts of or suicide. She also denied experiencing alcohol withdrawal symptoms. She is intermittently attending therapeutic groups and activities. She slept 6 hours last night. Mental status exam: She presented as a short 44-year-old female who was pleasant on approach. She made eye contact and appeared to attend to the interview. She had a sad facial expression. She was alert and oriented to person, place and time. She had psychomotor retardation but no abnormal involuntary movements. Her speech was spontaneous with decreased rate and volume. Her affect was depressed and not reactive. She did not express suicidal ideation or wishes. She did not express ideas reference, paranoid ideation or delusions. Her thinking was concrete. Associations were coherent, logical and goal directed. She did not appear to be responding to internal stimuli. Assessment: She is she appears moderately mentally ill much improved from admission. Plan: Continue inpatient treatment. Safety precautions. Continue current medications-Cymbalta 90 mg per day, Vistaril 25 mg twice a day when necessary for anxiety, and Ativan 1 mg by mouth 3 times a day for anxiety or alcohol withdrawal. Encourage participation in therapeutic groups and activities. Evaluate clinical status response to treatment daily basis.
[2020-01-04] MEDS: MONTELUKAST 10 MG TAB PO SCH (21:05)
[2020-01-04] MEDS: DULoxetine HCL 60 MG CAPSULE.DR PO SCH (21:05)
[2020-01-04] MEDS: FAMOTIDINE 20 MG TAB PO SCH (21:05)
[2020-01-05 06:27] VITALS: BP 112/58; PULSE 58; TEMP 97.7
[2020-01-05] MEDS: ACAMPROSATE CALCIUM 333 MG TABLET.DR PO SCH (08:29)
[2020-01-05] MEDS: DULoxetine HCL 30 MG CAPSULE.DR PO SCH (08:29)
[2020-01-05] MEDS: NICOTINE 21MG/24HR PATCH TRANSDERM SCH (08:29)
[2020-01-05] MEDS: FLUTICASONE 110 MCG INHALER INHALATION SCH (08:29)
[2020-01-05] MEDS: MULTIVITAMINS, THERA 1 EACH TAB PO SCH (08:30)
[2020-01-05] MEDS: THIAMINE 100 MG TAB PO SCH (08:30)
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
== END 2020-01-05 12:56 | disposition home or self-care (01) | DRG 885 ==
LOC: EC 17:06 → 3MHU 01-01 03:53
PROVIDERS: ADMIT Psychiatry & Neurology Psychiatry; ATTEND Psychiatry & Neurology Psychiatry
DX: F33.2 Major depressive disorder, recurrent severe without psychotic features (principal); Z20.828 Contact with and (suspected) exposure to other viral communicable diseases; F10.220 Alcohol dependence with intoxication, uncomplicated; T40.422A Poisoning by tramadol, intentional self-harm, initial encounter; G47.30 Sleep apnea, unspecified; K21.9 Gastro-esophageal reflux disease without esophagitis; F17.210 Nicotine dependence, cigarettes, uncomplicated; J45.909 Unspecified asthma, uncomplicated; M41.9 Scoliosis, unspecified; F41.9 Anxiety disorder, unspecified; Y90.7 Blood alcohol level of 200-239 mg/100 ml; E86.0 Dehydration; R74.8 Abnormal levels of other serum enzymes; G89.29 Other chronic pain; D72.829 Elevated white blood cell count, unspecified; Z71.6 Tobacco abuse counseling; Z79.899 Other long term (current) drug therapy; Z88.0 Allergy status to penicillin
CPT/HCPCS: 36415; 80053; 80061; 80076; 80306; 80320; 80329; 81025; 82550; 82553; 83036; 83520; 84443; 84703; 85025; 87635; 93005; 96360; 99285

== ENCOUNTER 2020-07-15 18:13 | Inpatient (IN) | payer OTHER ==
[2020-07-15] MEDS ORDERED: ASPIRIN 81 MG PO STA (19:00)
[2020-07-15] MEDS ORDERED: NITROGLYCERIN OINT 1 INCH/GM PACKET TOPICAL STA (19:00)
--- NOTE | 2020-07-15 19:05 | ED ---
General Adult HPI - General Chief complaint: Chest Pain Stated complaint: Chest pain/sob Time Seen by Provider: 07/15/20 18:35 Source: patient, RN notes reviewed, old records reviewed Mode of arrival: ambulatory Limitations: no limitations - History of Present Illness Initial comments: This is a 45-year-old female comes emergency Department complaining of left- sided chest pain which started yesterday has been intermittent ever since but patient states when it comes it lasts for 20 minutes to 30 minutes at a time. Patient states she does feel short of breath when it comes. Patient denies any nausea or vomiting. Patient states she is a smoker. Patient denies any diabetes hypertension high cholesterol. Patient denies any previous history of heart disease. Patient does not know what her family history is. Patient denies any recent fever chills per patient denies any trauma. Patient denies any swelling to the legs or calf tenderness. Patient states occasionally she's had some abdominal pain as well. - Related Data Home Medications Medication Instructions Recorded Confirmed Famotidine [Pepcid] 20 mg PO BID 03/25/19 07/15/20 Ibuprofen [Motrin] 600 mg PO Q8HR PRN 03/25/19 07/15/20 Montelukast [Singulair] 10 mg PO HS 03/25/19 07/15/20 Albuterol Sulfate [Ventolin HFA] 2 puff INHALATION RT-Q4H PRN 12/31/19 07/15/20 Cymbalta 1 dose PO DIRECTED 07/15/20 07/15/20 Allergies Allergy/AdvReac Type Severity Reaction Status Date / Time Penicillins Allergy Unknown Hives, Verified 07/15/20 20:18 Fever, Swellingand unknown other reaction Review of Systems ROS Statement: Those systems with pertinent positive or pertinent negative responses have been documented in the HPI. ROS Other: All systems not noted in ROS Statement are negative. Past Medical History Past Medical History: Asthma, GERD/Reflux, Sleep Apnea/CPAP/BIPAP Additional Past Medical History / Comment(s): scoliosis, back pain, frequent diarrhea, wearing brace right knee. History of Any Multi-Drug Resistant Organisms: None Reported Past Surgical History: No Surgical Hx Reported Past Anesthesia/Blood Transfusion Reactions: Motion Sickness Additional Past Anesthesia/Blood Transfusion Reaction / Comment(s): patient has never received anesthesia. Past Psychological History: Anxiety Smoking Status: Current some day smoker Past Alcohol Use History: Daily Past Drug Use History: None Reported - Past Family History Mother Family Medical History: Unable to Obtain Additional Family Medical History / Comment(s): pt states unknown family hx. General Exam - General Exam Comments Initial Comments: GENERAL: Patient is well-developed and well-nourished. Patient is nontoxic and well-h ydrated and is in mild distress. ENT: Neck is soft and supple. No significant lymphadenopathy is noted. Oropharynx is clear. Moist mucous membranes. Neck has full range of motion without eliciting any pain. EYES: The sclera were anicteric and conjunctiva were pink and moist. Extraocular move ments were intact and pupils were equal round and reactive to light. Eyelids were unremarkable. PULMONARY: Unlabored respirations. Good breath sounds bilaterally. No audible rales rhonchi or wheezing was noted. CARDIOVASCULAR: There is a regular rate and rhythm without any murmurs gallops or rubs. ABDOMEN: Soft and nontender with normal bowel sounds. SKIN: Skin is clear with no lesions or rashes and otherwise unremarkable. NEUROLOGIC: Patient is alert and oriented x3. Cranial nerves II through XII are grossly intact. Motor and sensory are also intact. Normal speech, volume and content. Symmetrical smile. MUSCULOSKELETAL: Normal extremities with adequate strength and full range of motion. No lower extremity swelling or edema. No calf tenderness. LYMPHATICS: No significant lymphadenopathy is noted PSYCHIATRIC: Normal psychiatric evaluation. Limitations: no limitations Course Vital Signs 07/15/20 18:35 Temperature 98.4 F Pulse Rate 88 Respiratory 20 Rate Blood Pressure 159/98 O2 Sat by Pulse 96 Oximetry Medical Decision Making - Medical Decision Making EKG shows normal sinus rhythm at 70 bpm VA interval is 134 QRS is 82 QT interval 420 QTC is 470. Patient's EKG shows flipped T waves in V1 through V5. Chest x-ray shows no acute abnormality. Patient had elevated troponin with new changes on EKG therefore started the patient heparin. I spoke with [facility] agreed to admit the patient admitted the patient wrote admitting her thigh consulted cardiology and I continued heparin and aspirin Nitropaste on the floor. - Lab Data Result diagrams: 07/15/20 19:00 07/15/20 19:00 Lab Results 07/15/20 07/15/20 07/15/20 Range/Units 19:00 19:00 19:00 WBC 9.4 (3.8-10.6) k/uL RBC 5.50 H (3.80-5.40) m/uL Hgb 17.1 H (11.4-16.0) gm/dL Hct 52.1 H (34.0-46.0) % MCV 94.8 (80.0-100.0) fL MCH 31.0 (25.0-35.0) pg MCHC 32.8 (31.0-37.0) g/dL RDW 14.1 (11.5-15.5) % Plt Count 140 L (150-450) k/uL MPV 11.5 Neutrophils % 65 % Lymphocytes % 25 % Monocytes % 4 % Eosinophils % 2 % Basophils % 1 % Neutrophils # 6.1 (1.3-7.7) k/uL Lymphocytes # 2.3 (1.0-4.8) k/uL Monocytes # 0.4 (0-1.0) k/uL Eosinophils # 0.2 (0-0.7) k/uL Basophils # 0.1 (0-0.2) k/uL PT 10.5 (9.0-12.0) sec INR 1.0 (<1.2) APTT 22.4 (22.0-30.0) sec Sodium 136 L (137-145) mmol/L Potassium 3.9 (3.5-5.1) mmol/L Chloride 103 (98-107) mmol/L Carbon Dioxide 18 L (22-30) mmol/L Anion Gap 15 mmol/L BUN 7 (7-17) mg/dL Creatinine 0.42 L (0.52-1.04) mg/dL Est GFR (CKD-EPI)AfAm >90 (>60 ml/min/1.73 sqM) Est GFR (CKD-EPI)NonAf >90 (>60 ml/min/1.73 sqM) Glucose 145 H (74-99) mg/dL Calcium 9.8 (8.4-10.2) mg/dL Magnesium 2.0 (1.6-2.3) mg/dL Total Bilirubin 0.2 (0.2-1.3) mg/dL AST 52 H (14-36) U/L ALT 65 H (4-34) U/L Alkaline Phosphatase 89 (38-126) U/L Troponin I (0.000-0.034) ng/mL Total Protein 6.9 (6.3-8.2) g/dL Albumin 4.3 (3.5-5.0) g/dL Lipase 93 (23-300) U/L 07/15/20 Range/Units 19:00 WBC (3.8-10.6) k/uL RBC (3.80-5.40) m/uL Hgb (11.4-16.0) gm/dL Hct (34.0-46.0) % MCV (80.0-100.0) fL MCH (25.0-35.0) pg MCHC (31.0-37.0) g/dL RDW (11.5-15.5) % Plt Count (150-450) k/uL MPV Neutrophils % % Lymphocytes % % Monocytes % % Eosinophils % % Basophils % % Neutrophils # (1.3-7.7) k/uL Lymphocytes # (1.0-4.8) k/uL Monocytes # (0-1.0) k/uL Eosinophils # (0-0.7) k/uL Basophils # (0-0.2) k/uL PT (9.0-12.0) sec INR (<1.2) APTT (22.0-30.0) sec Sodium (137-145) mmol/L Potassium (3.5-5.1) mmol/L Chloride (98-107) mmol/L Carbon Dioxide (22-30) mmol/L Anion Gap mmol/L BUN (7-17) mg/dL Creatinine (0.52-1.04) mg/dL Est GFR (CKD-EPI)AfAm (>60 ml/min/1.73 sqM) Est GFR (CKD-EPI)NonAf (>60 ml/min/1.73 sqM) Glucose (74-99) mg/dL Calcium (8.4-10.2) mg/dL Magnesium (1.6-2.3) mg/dL Total Bilirubin (0.2-1.3) mg/dL AST (14-36) U/L ALT (4-34) U/L Alkaline Phosphatase (38-126) U/L Troponin I 0.047 H* (0.000-0.034) ng/mL Total Protein (6.3-8.2) g/dL Albumin (3.5-5.0) g/dL Lipase (23-300) U/L Critical Care Time Critical Care Time: Yes Total Critical Care Time: 35 Disposition Clinical Impression: Unstable angina pectoris Disposition: ADMITTED IP TO THIS HOSP Referrals: Tracey Freire MD [Primary Care Provider] - 1-2 days Time of Disposition: 20:31
[2020-07-15 19:54] LABS: Basophils # (A) 0.1 k/uL (0-0.2); Basophils % (A) 1 %; Eosinophils # (A) 0.2 k/uL (0-0.7); Eosinophils % (A) 2 %; HCT 52.1 % (34.0-46.0); HGB 17.1 gm/dL (11.4-16.0); Lymphocytes # (A) 2.3 k/uL (1.0-4.8); Lymphocytes % (A) 25 %; MCHC 32.8 g/dL (31.0-37.0); MCV 94.8 fL (80.0-100.0); Mean Platelet Volume 11.5; Monocytes # (A) 0.4 k/uL (0-1.0); Monocytes % (A) 4 %; Neutrophils # (A) 6.1 k/uL (1.3-7.7); Neutrophils % (A) 65 %; Platelet Count 140 k/uL (150-450); RDW 14.1 % (11.5-15.5); WBC 9.4 k/uL (3.8-10.6)
[2020-07-15 20:02] LABS: Partial Thromboplastin Time 22.4 sec (22.0-30.0); Prothrombin Time 10.5 sec (9.0-12.0)
[2020-07-15 20:04] LABS: ALT 65 U/L (4-34); AST 52 U/L (14-36); African American GFR (CKD) >90 (>60 ml/min/1.73 sqM); Albumin 4.3 g/dL (3.5-5.0); Alkaline Phosphatase 89 U/L (38-126); Anion Gap 15 mmol/L; Blood Urea Nitrogen 7 mg/dL (7-17); Calcium 9.8 mg/dL (8.4-10.2); Carbon Dioxide 18 mmol/L (22-30); Chloride 103 mmol/L (98-107); Glucose 145 mg/dL (74-99); Lipase 93 U/L (23-300); Non-African American GFR(CKD) >90 (>60 ml/min/1.73 sqM); Potassium 3.9 mmol/L (3.5-5.1); Sodium 136 mmol/L (137-145); Total Bilirubin 0.2 mg/dL (0.2-1.3); Total Protein 6.9 g/dL (6.3-8.2)
--- NOTE | 2020-07-15 20:14 | XR ---
EXAMINATION: XR chest 2V DATE AND TIME: 07/15/2020 8:04 PM CLINICAL INDICATION: PHH; Chest Pain TECHNIQUE: Departmental protocol COMPARISON: None FINDINGS: The overlying soft tissues are prominent. The lungs appear to be clear. The pleural spaces are negative. The cardiac silhouette is not enlarged. The remainder of the mediastinal silhouette is unremarkable. The skeletal structures and soft tissues are negative for acute findings. IMPRESSION: No definite acute radiographic process.
[2020-07-15] MEDS ORDERED: NITROGLYCERIN SL TABS 0.4 MG TAB SUBLINGUAL PRN (20:31)
[2020-07-15] MEDS ORDERED: HEPARIN SODIUM 1,000 UN/ML (10ML VL) IV STA (20:35)
[2020-07-15] MEDS ORDERED: NICOTINE 21MG/24HR PATCH TRANSDERM STA (20:38)
[2020-07-15] MEDS ORDERED: HEPARIN SOD,PORK IN 0.45% NACL 25,000 UNIT in 0.45% NACL 1 250ML.BAG IV SCH (20:45)
[2020-07-16] MEDS: NITROGLYCERIN OINT 1 INCH/GM PACKET TOPICAL SCH ×4 (04:14→17:13)
[2020-07-16] MEDS ORDERED: SODIUM CHLORIDE 0.9% 1,000 ML in EMPTY BAG 1 BAG IV ONE (08:47)
[2020-07-16] MEDS: ASPIRIN 325 MG TAB PO SCH (08:48)
[2020-07-16] MEDS ORDERED: fentaNYL (PF) 50 MCG/ML 2 ML AMP ONE (09:08)
[2020-07-16] MEDS ORDERED: LIDOCAINE 1% INJ 10MG/ML (20 ML MDV) ONE (09:08)
[2020-07-16] MEDS ORDERED: IV FLUID CONTINUATION 500 ML IV ONE (09:14)
[2020-07-16] MEDS: fentaNYL (PF) 50 MCG/ML 2 ML AMP IV ONE ×3 (09:41→10:36)
[2020-07-16] MEDS: MIDAZOLAM 2 MG/2 ML VIAL IV ONE ×4 (09:41→10:30)
[2020-07-16] MEDS ORDERED: LIDOCAINE 1% INJ 10MG/ML (20 ML MDV) SQ ONE (09:41)
[2020-07-16 09:49] LABS: Chol/HDL Ratio 9.23
[2020-07-16] MEDS ORDERED: BIVALIRUDIN BOLUS 250 MG/50 ML IV ONE (10:19)
[2020-07-16] MEDS ORDERED: BIVALIRUDIN 250 MG in SODIUM CHLORIDE 0.9% 50 ML IV ONE (10:21)
[2020-07-16] MEDS: NITROGLYCERIN 1000MCG/10ML SYRINGE INTRACORON ONE ×2 (10:23→10:41)
[2020-07-16] MEDS ORDERED: IOPAMIDOL-370 125ML BTL INJ ONE (10:33)
[2020-07-16] MEDS ORDERED: MORPHINE SULFATE 4 MG/ML SYRINGE ONE (10:37)
[2020-07-16] MEDS ORDERED: FUROSEMIDE 10 MG/ML 4 ML VIAL ONE (10:37)
[2020-07-16] MEDS ORDERED: MORPHINE SULFATE 4 MG/ML SYRINGE IV ONE (10:40)
[2020-07-16] MEDS ORDERED: FUROSEMIDE 10 MG/ML 4 ML VIAL IV ONE (10:41)
[2020-07-16] MEDS ORDERED: PRASUGREL 10 MG TAB ONE (10:43)
[2020-07-16] MEDS ORDERED: PRASUGREL 10 MG TAB PO ONE (10:50)
--- NOTE | 2020-07-16 11:00 | CONS ---
CONSULTATION HISTORY OF PRESENT ILLNESS: Melody is a 45-year-old lady with history of bipolar mood disorder, who presented to the hospital complaining of chest pain. She states that she has been having on and off episodes of chest discomfort for the last one month. She describes it as precordial chest pressure, mild to moderate intensity without definite radiation to neck, arm or back. It is not associated with diaphoresis. There is no history of focal neurological deficits. There is no history of leg edema, PND or orthopnea. Her troponin was elevated on admission at 0.047. The subsequent two have come back as 0.053 and 0.056. Her coronavirus test is negative. EKG shows sinus rhythm with T-wave inversions in the precordial leads suggestive of anterior ischemia. A chest x-ray is unremarkable. The patient did not have any prior cardiac testing. She states that she never had a stress test, echocardiogram or cardiac catheterization. There is no prior history of coronary artery disease or congestive heart failure. Her clinical presentation is consistent with a non ST-segment elevation AL. I am going to obtain a 2D echo to assess her LV function and wall motion and schedule her for cardiac catheterization. She understands risks, benefits and alternatives. PAST MEDICAL HISTORY: Past medical history is significant for asthma and depression and suicidal ideation in the past. MEDICATIONS: Include Cymbalta, Ventolin, Singulair, Motrin, and Pepcid. ALLERGIES: PENICILLIN. FAMILY HISTORY: Is unknown. SOCIAL HISTORY: Significant for smoking, EtOH abuse, and she smokes marijuana. REVIEW OF SYSTEMS: HEENT is unremarkable. Cardiac as described above. Respiratory as described above. GI negative. GENITOURINARY: Negative. Skin negative. Allergy/Immunology: Negative. MUSCULOSKELETAL: Significant for arthritis. Psychosocial negative. Endocrine negative. Derm negative. Constitutional negative. Oncological negative. POSTULANT negative. Rest of the system review is not relevant. EXAM: Patient is afebrile. Heart rate is 81 beats per minute. Blood pressure is 118/66, respiratory rate is 18, O2 saturation is 92% on room air. There is no jugular venous distention. Carotid upstroke is normal. There is no bruit. Chest exam reveals good air entry bilaterally. Heart exam reveals first and second heart sounds. No gallop. No murmur. No rub. Abdomen is soft, nontender. Examination of the extremities did not reveal any edema. Peripheral pulses are palpable. LABORATORY DATA: Lab show a hemoglobin of 17.1, platelet count is 140, potassium is 3.9, creatinine is 0.4. Troponins are mildly elevated. ASSESSMENT: Acute non ST-segment elevation myocardial infarction. PLAN: Patient will undergo cardiac catheterization for further evaluation. JUAN / EDMUND: [id number] /
[2020-07-16] MEDS ORDERED: IOPAMIDOL-370 100ML BTL INJ ONE (11:01)
[2020-07-16] MEDS ORDERED: NITROGLYCERIN SL TABS 0.4 MG TAB SUBLINGUAL PRN (11:09)
[2020-07-16] MEDS ORDERED: MAG HYDROX/AL HYDROX/SIMETH 30 ML CUP PO PRN (11:09)
[2020-07-16] MEDS ORDERED: ATROPINE SULFATE 0.1 MG/ML 10ML SYRINGE IV PRN (11:09)
[2020-07-16] MEDS ORDERED: RX INFO: IV CONTRAST WAS GIVEN 1 EACH MISC MISCELLANE PRN (11:09)
[2020-07-16] MEDS ORDERED: ZOLPIDEM 5 MG TAB PO PRN (11:09)
[2020-07-16] MEDS ORDERED: SODIUM CHLORIDE 0.9% 1,000 ML IV SCH (11:15)
--- NOTE | 2020-07-16 11:16 | CC ---
CARDIAC CATHETERIZATION REPORT INDICATION: Acute non ST-segment elevation AK. PROCEDURE NOTE: After obtaining informed consent, left heart catheterization and coronary angiogram were performed via the right femoral artery using standard Cari catheters. Patient tolerated the procedure well without any obvious immediate complications. Patient received moderate conscious sedation. Total sedation time was 15 minutes. FINDINGS: HEMODYNAMICS: Left ventricular end-diastolic pressure is 8 to 10 mm. There is no significant gradient across the aortic valve. LEFT VENTRICULOGRAM: Not performed. ANGIOGRAPHIC DATA: LEFT MAIN CORONARY ARTERY: Left main coronary artery is a short vessel, but is free of significant stenosis. Divides into left anterior descending coronary artery and circumflex coronary artery. LEFT ANTERIOR DESCENDING CORONARY ARTERY: LAD shows an area of plaque rupture with 90% stenosis in the midportion at the origin of the diagonal branch. CIRCUMFLEX CORONARY ARTERY: Circumflex coronary artery which is a nondominant vessel is free of significant disease. RIGHT CORONARY ARTERY: Right coronary artery is a large dominant vessel that shows a 90% stenosis in the proximal portion. CONCLUSIONS: Severe 2 vessel coronary artery disease as described above. PLAN: Patient will undergo angioplasty with stent placement of these [address] Strange , the available oracle dba. MMODL / IJN: [id number] /
[2020-07-16] MEDS ORDERED: HYDROmorphone 0.5 MG/0.5 ML SYRINGE IVP PRN (11:32)
--- NOTE | 2020-07-16 11:44 | PTCA ---
PERCUTANEOUSTRANS CORORONARY ANGIOGRAPHY PERFORMING PHYSICIAN: Dean Strange MD. PROCEDURE PERFORMED: 1. Successful stenting of the proximal right coronary artery using 4.0 x 18 mm Xience drug-eluting stent with an excellent angiographic results and reduction of stenosis from 90% to 0%. 2. Successful stenting of the mid left anterior descending artery using 2.75 x 12 mm Xience drug-eluting stent which was post-dilated using 3.0 and then 3.25 mm noncompliant balloon with an excellent angiographic result and reduction of stenosis from 90% to 0%. INDICATION: This is a 45-year-old female patient who presented to the hospital with chest discomfort and was seen by Dr. Fung. She was ruled in for acute coronary syndrome. A heart catheterization was performed by Dr. Fung and revealed severe 2 vessel coronary artery disease and because of that, PCI was advised. APPROACH: Right common femoral artery. COMPLICATION: None. LEVEL OF SEDATION: Moderate with sedation length of 42 minutes. PROCEDURE DESCRIPTION: Please refer to the diagnostic heart catheterization was performed by Dr. Fung earlier today. Anticoagulation was initiated using Angiomax. Subsequently, I engaged the RCA using JR4 guide and I wired it using a run-through wire. After that, I did PTCA ballooning using 3.0 x 12 mm balloon before I deployed 4.0 x 18 mm Xience drug-eluting stent where the stent was positioned under fluoroscopy guidance and deployed under 14 atmospheres for 20 seconds. The following angiogram showed excellent angiographic results. For the lesion in the LAD, I did engage the LAD using JL 3.5 guide. I did wire the LAD using a run-through wire. I did predilatation using 2.5 x 12 mm balloon before I deployed 2.75 x 12 mm Xience drug-eluting stent where the stent was positioned under fluoroscopy guidance and deployed under its nominal pressure. The following angiogram showed what seems to be possible thrombus in the middle of the stent. I postdilated the stent using 3.0 and then 3.25 mm balloon. The following angiogram continues to show that density which could be a thrombus, could be also calcified plaque behind the stent. The flow in the LAD was LILO-3 flow and because of that I decided to stop. POSTPROCEDURE MANAGEMENT: 1. Dual anti-platelet therapy. 2. Risk factor modifications. 3. Follow up with the patient. MMODL / IJN: [id number] /
[2020-07-16 15:06] VITALS: BMI 30.3
[2020-07-16] MEDS ORDERED: LORazepam 2 MG/ML INJ IV PRN ×3 (15:20)
--- NOTE | 2020-07-16 16:43 | P.HPIM ---
History of Present Illness H&P Date: 07/16/20 Chief Complaint: chest pain patient is a 45 old female with a known history of chronic back pain, scoliosis, asthma, anxiety, daily alcohol use-2-3 beers thirstier due to complaints of intermittent chest pains for the past1 month. Patient started having chest pain yesterday and called her PCPs office who recommends [facility]. Patient has been having chest pain for the past 1 month lasting about 20 minutes, left retrosternal with associatedmild shortness of breath and nausea. No headache or dizziness or lightheadedness. No leg swelling. Denied any exertional dyspnea.. Patient otherwise drinks an daily basis. Denied any fever or chills. No cough or sputum production. No recent illnesses or sick contacts. No recent travel. chest x-ray showedno acute process. Next and EKG showed normal sinus rhythm. laboratory data showedWBC 9.4, hemoglobin 17.1 and platelets 140 BUN 7 creatinine 0.4 to bicarb is 18 sodium 136 potassium 3.9 chloride 103, AST 52 ALT 65 alk phos 89 Troponin 0.047, 0.053, 0.056, lipase 93 LDL 168 and triglycerides 630 Review of Systems Constitutional: Patient denies any fever or chills . No generalized weakness or weight loss. Abdomen: Patient denied nausea vomiting and diarrhea and abdominal pain. Cardiovascular: patient does have intermittent left retrosternal chest pain and shortness of breath. No palpitations no leg swelling.. Respiratory: patient denied any cough is from production. No shortness of breath Neurologic: Patient denied any numbness or tingling headache. Musculoskeletal: Patient denies any complaints of joint swelling or deformity. Skin: Negative Psychiatric: Negative Endocrine: No heat or cold intolerance. No recent weight gain. Genitourinary: No dysuria or hematuria. All other 14 point ROS negative except the above Past Medical History Past Medical History: Asthma, GERD/Reflux, Sleep Apnea/CPAP/BIPAP Additional Past Medical History / Comment(s): scoliosis, back pain, frequent diarrhea, wearing brace right knee. History of Any Multi-Drug Resistant Organisms: None Reported Past Surgical History: No Surgical Hx Reported Past Anesthesia/Blood Transfusion Reactions: Motion Sickness Additional Past Anesthesia/Blood Transfusion Reaction / Comment(s): patient has never received anesthesia. Past Psychological History: Anxiety Smoking Status: Current some day smoker Past Alcohol Use History: Daily Past Drug Use History: None Reported - Past Family History Mother Family Medical History: Unable to Obtain Additional Family Medical History / Comment(s): pt states unknown family hx. Medications and Allergies Home Medications Medication Instructions Recorded Confirmed Type Famotidine [Pepcid] 20 mg PO BID 03/25/19 07/15/20 History Ibuprofen [Motrin] 600 mg PO Q8HR PRN 03/25/19 07/15/20 History Montelukast [Singulair] 10 mg PO HS 03/25/19 07/15/20 History Albuterol Sulfate [Ventolin HFA] 2 puff INHALATION RT-Q4H PRN 12/31/19 07/15/20 History Cymbalta 1 dose PO DIRECTED 07/15/20 07/15/20 History Allergies Allergy/AdvReac Type Severity Reaction Status Date / Time Penicillins Allergy Unknown Hives, Verified 07/15/20 20:18 Fever, Swellingand unknown other reaction Physical Exam Vitals: Vital Signs Temp Pulse Pulse Resp BP BP Pulse Ox 07/16/20 09:02 97.8 F 81 17 105/64 95 07/16/20 08:00 97.8 F 81 17 105/64 95 07/16/20 06:09 81 17 07/16/20 04:00 97.8 F 81 17 108/66 92 L 07/16/20 02:51 78 18 127/48 97 07/15/20 21:59 94 18 120/79 92 L 07/15/20 21:15 71 16 131/87 96 07/15/20 18:35 98.4 F 88 20 159/98 96 Intake and Output 07/15/20 07/16/20 07/16/20 22:59 06:59 14:59 Intake Total 66.301 Balance 66.301 Intake: Intake, IV Titration 66.301 Amount Heparin Sod,Pork in 0.45% 66.301 NaCl 25,000 unit In 0.45 % NaCl 1 250ml.bag @ 12 UNITS/KG/HR 7.893 mls/hr IV .Q24H [facility] Rx#: [id number] Other: Weight 65.771 kg PHYSICAL EXAMINATION: Patient is lying in the bed comfortably, no acute distress, awake alert and oriented.. HEENT: Normocephalic. Neck is supple. Pupils reactive. Nostrils clear. Oral cavity is moist. Ears reveal no drainage. Neck reveals no JVD, carotid bruits, or thyromegaly. CHEST EXAMINATION: Trachea is central. Symmetrical expansion. Lung altamirano clear to auscultation and percussion. CARDIAC: Normal S1, S2 with no gallops. No murmurs ABDOMEN: Soft.distended, nontender.Bowel sounds normal. No organomegaly. No abdominal bruits. Extremities: reveal no edema. No clubbing or cyanosis Neurologically awake, alert, oriented x3 with well-coordinated movements. No focal deficits noted Skin: No rash or skin lesions. Psychiatric: Coperative. Nonsuicidal Musculoskeletal: No joint swelling or deformity. Normal range of motion. Results CBC & Chem 7: 07/15/20 19:00 07/15/20 19:00 Labs: Abnormal Lab Results - Last 24 Hours (Table) 07/15/20 07/15/20 07/15/20 Range/Units 19:00 19:00 19:00 RBC 5.50 H (3.80-5.40) m/uL Hgb 17.1 H (11.4-16.0) gm/dL Hct 52.1 H (34.0-46.0) % Plt Count 140 L (150-450) k/uL Sodium 136 L (137-145) mmol/L Carbon Dioxide 18 L (22-30) mmol/L Creatinine 0.42 L (0.52-1.04) mg/dL Glucose 145 H (74-99) mg/dL AST 52 H (14-36) U/L ALT 65 H (4-34) U/L Troponin I 0.047 H* (0.000-0.034) ng/mL Triglycerides (0.0-149.0) mg/dL Cholesterol (0-200) mg/dL HDL Cholesterol (40.0-60.0) mg/dL 07/15/20 07/16/20 07/16/20 Range/Units 21:44 01:09 03:29 RBC (3.80-5.40) m/uL Hgb (11.4-16.0) gm/dL Hct (34.0-46.0) % Plt Count (150-450) k/uL Sodium (137-145) mmol/L Carbon Dioxide (22-30) mmol/L Creatinine (0.52-1.04) mg/dL Glucose (74-99) mg/dL AST (14-36) U/L ALT (4-34) U/L Troponin I 0.053 H* 0.056 H* (0.000-0.034) ng/mL Triglycerides 630.0 H (0.0-149.0) mg/dL Cholesterol 240 H (0-200) mg/dL HDL Cholesterol 26.0 L (40.0-60.0) mg/dL Thrombosis Risk Factor Assmnt - DVT/VTE Prophylaxis DVT/VTE Prophylaxis: Pharmacologic Prophylaxis ordered Assessment and Plan Assessment: Acute non-ST elevated [place] status post stent placement Intermittent left retrosternalchest pain for the past 1 month Hyperlipidemia with [id number] Hypertriglyceridemia triglycerides 630 daily alcohol use mild transaminitis Ongoing nicotine addiction Depression/anxiety Chronic back pain and scoliosis DVT prophylaxis with heparin subcu Plan: patient wasstarted on heparin drip and was given a dose of aspirin and statins. Patient was seen by cardiology and was taken to cardiac catheterization and stent placement to RCA and mid LAD. continue with aspirin, atorvastatin and prasugrel. continue with telemetry monitoring and further recommendations based on the clinical course. Monitor for alcohol withdrawal symptoms. Continue with thiamine and multivitamins and PPI. Smoking cessation and alcohol abstinence has been counseled extensively. Time with Patient: Greater than 30
[2020-07-16] MEDS: THIAMINE 100 MG TAB PO SCH (17:46)
[2020-07-16] MEDS: PANTOPRAZOLE 40 MG TABLET PO SCH (17:46)
--- NOTE | 2020-07-16 18:00 | ECHOF ---
Referral Reason: MEASUREMENTS -------- HEIGHT: 129.5 cm WEIGHT: 65.8 kg BP: IVSd: 1.1 cm (0.6 - 1.1) LVIDd: 3.2 cm (3.9 - 5.3) LVPWd: 1.3 cm (0.6 - 1.1) IVSs: 1.6 cm LVIDs: 2.0 cm LVPWs: 1.7 cm Ao Diam: 2.8 cm (2.0 - 3.7) AV Cusp: 1.9 cm (1.5 - 2.6) LA Diam: 2.7 cm (2.7 - 3.8) MV E Daryl: 0.47 m/s MV DecT: 229 ms MV A Daryl: 0.65 m/s MV E/A Ratio: 0.72 RAP: 5.00 mmHg RVSP: 8.98 mmHg FINDINGS -------- This was a technically difficult study with suboptimal views. The left ventricular size is normal. There is mild concentric left ventricular hypertrophy. Overa ll left ventricular systolic function is normal with, an EF between 55 - 60 %. The right ventricle is normal in size. The left atrial size is normal. The right atrial size is normal. 5.0mg of Lumason was utilized for enhancement of images The aortic valve was not well visualized. The mitral valve was not well visualized. There is trace mitral regurgitation. The tricuspid valve was not well visualized. Trace tricuspid regurgitation present. The pulmonic valve was not well visualized. The aortic root size is normal. IVC Not well visulized. There is no pericardial effusion. CONCLUSIONS -------- 1. The left ventricular size is normal. 2. There is mild concentric left ventricular hypertrophy. 3. Overall left ventricular systolic function is normal with, an EF between 55 - 60 %. 4. There is trace mitral regurgitation. 5. Trace tricuspid regurgitation present. 6. There is no pericardial effusion. RUNNER ON: Selina Gracia RDCS
[2020-07-16] MEDS: NICOTINE 21MG/24HR PATCH TRANSDERM SCH (20:27)
[2020-07-16] MEDS: METOPROLOL TARTRATE 25 MG TAB PO SCH (20:27)
[2020-07-16] MEDS: HEPARIN SODIUM,PORCINE/PF 5,000 UNIT/0.5 ML SYRINGE SQ SCH (20:27)
[2020-07-16] MEDS ORDERED: ATORVASTATIN 80 MG TAB PO SCH (21:00)
[2020-07-17] MEDS: NITROGLYCERIN OINT 1 INCH/GM PACKET TOPICAL SCH ×2 (00:54→06:35)
[2020-07-17 05:21] VITALS: RESP 18
[2020-07-17] MEDS: THIAMINE 100 MG TAB PO SCH (06:38)
[2020-07-17] MEDS: PANTOPRAZOLE 40 MG TABLET PO SCH (06:38)
[2020-07-17 08:00] LABS: Basophils # (A) 0.1 k/uL (0-0.2); Basophils % (A) 1 %; Eosinophils # (A) 0.2 k/uL (0-0.7); Eosinophils % (A) 2 %; HCT 47.5 % (34.0-46.0); HGB 16.2 gm/dL (11.4-16.0); Lymphocytes # (A) 1.8 k/uL (1.0-4.8); Lymphocytes % (A) 20 %; MCH 32.3 pg (25.0-35.0); MCV 94.9 fL (80.0-100.0); Mean Platelet Volume 11.5; Monocytes # (A) 0.6 k/uL (0-1.0); Monocytes % (A) 7 %; Neutrophils # (A) 6.4 k/uL (1.3-7.7); Neutrophils % (A) 69 %; Platelet Count 124 k/uL (150-450); RBC 5.01 m/uL (3.80-5.40); RDW 13.3 % (11.5-15.5); WBC 9.2 k/uL (3.8-10.6)
[2020-07-17 08:03] LABS: African American GFR (CKD) >90 (>60 ml/min/1.73 sqM); Anion Gap 4 mmol/L; Blood Urea Nitrogen 7 mg/dL (7-17); Carbon Dioxide 24 mmol/L (22-30); Chloride 107 mmol/L (98-107); Glucose 214 mg/dL (74-99); Non-African American GFR(CKD) >90 (>60 ml/min/1.73 sqM); Potassium 3.8 mmol/L (3.5-5.1); Sodium 135 mmol/L (137-145)
[2020-07-17] MEDS: METOPROLOL TARTRATE 25 MG TAB PO SCH (08:58)
[2020-07-17] MEDS: ASPIRIN 325 MG TAB PO SCH (08:58)
[2020-07-17] MEDS: HEPARIN SODIUM,PORCINE/PF 5,000 UNIT/0.5 ML SYRINGE SQ SCH (08:59)
[2020-07-17] MEDS: NICOTINE 21MG/24HR PATCH TRANSDERM SCH (08:59)
[2020-07-17] MEDS ORDERED: PRASUGREL 10 MG TAB PO STA (11:22)
[2020-07-17 11:26] VITALS: BP 133/81; PULSE 80; TEMP 97.3
--- NOTE | 2020-07-17 11:36 | P.PN ---
Subjective Progress Note Date: 07/17/20 HISTORY OF PRESENT ILLNESS: 45-year-old female who is admitted to the hospital secondary to non-STEMI. Patient underwent cardiac catheterization yesterday with Dr. Olvera. Patient und erwent PCI to the RCA and LAD per Dr. Strange. Patient examined this point the bedside. She denies short of breath. She reports minimal chest discomfort which is significantly improved from yesterday. Vital signs are stable. She has been up ambulating in the room. Telemetry reveals sinus mechanism. Echocardiogram completed revealed ejection fraction 55-60%, trace mitral regurgitation, and trace tricuspid regurgitation PHYSICAL EXAM: VITAL SIGNS: Reviewed. GENERAL: Well-developed in no acute distress. NECK: Supple. No JVD or thyromegaly LUNGS: Respirations even and unlabored. Lungs essentially clear to auscultation bilaterally. HEART: Regular rate and rhythm. S1 and S2 heard. EXTREMITIES: Normal range of motion. No clubbing or cyanosis. Peripheral pulses intact. No lower extremity edema. Right groin soft with no hematoma noted ASSESSMENT: Non-STEMI, s/p PCI to RCA and LAD Nicotine dependence PLAN: Continue aspirin 81 mg daily and Effient 10 mg daily Case management verified coverage of Effient and is covered. Rx sent to [facility]. Continue metoprolol and atorvastatin Discontinue nitro paste Smoking cessation recommended Continue to monitor patient for today and anticipate discharge home tomorrow if she remains stable Nurse practitioner note has been reviewed by physician. Signing provider agrees with the documented findings, assessment, and plan of care. Objective - Vital Signs Vital signs: Vital Signs Temp 97.3 F L 07/17/20 08:00 Pulse 80 07/17/20 08:00 Resp 18 07/17/20 04:25 BP 133/81 07/17/20 08:00 Pulse Ox 93 L 07/17/20 08:00 Intake & Output 07/16/20 07/17/20 07/17/20 18:59 06:59 18:59 Intake Total 650 240 Output Total 700 Balance -50 240 Weight 65.771 kg 68.5 kg Intake: IV 320 Oral 330 240 Output: Urine 700 Other: Voiding Method Toilet # Voids 1 1 2 # Bowel Movements 1 - Labs CBC & Chem 7: 07/17/20 07:32 07/17/20 07:32 Labs: Abnormal Lab Results - Last 24 Hours (Table) 07/17/20 07/17/20 Range/Units 07:32 07:32 Hgb 16.2 H (11.4-16.0) gm/dL Hct 47.5 H (34.0-46.0) % Plt Count 124 L (150-450) k/uL Sodium 135 L (137-145) mmol/L Creatinine 0.49 L (0.52-1.04) mg/dL Glucose 214 H (74-99) mg/dL
[2020-07-17] MEDS ORDERED: ASPIRIN 81 MG PO SCH (11:45)
--- NOTE | 2020-07-17 12:34 | P.DS ---
Providers Date of admission: 07/15/20 20:31 Attending physician: Messi Handy Consults: 07/15/20 20:31 Consult Physician Urgent Consulting Provider: Cardiology Komal Consult Reason/Comments: Unstable angina Do you want consulting provider notified?: Yes 07/16/20 11:09 Consult Physician Routine Consulting Provider: Robert Sauceda Consult Reason/Comments: Post Interventional patient Do you want consulting provider notified?: Already Contacted Primary care physician: [facility] Course: patient is a 45 old female with a known history of chronic back pain, scoliosis, asthma, anxiety, daily alcohol use-2-3 beers thirstier due to complaints of intermittent chest pains for the past1 month. Patient started having chest pain yesterday and called her PCPs office who recommends [facility]. Patient has been having chest pain for the past 1 month lasting about 20 minutes, left retrosternal with associatedmild shortness of breath and nausea. No headache or dizziness or lightheadedness. No leg swelling. Denied any exertional dyspnea.. Patient otherwise drinks an daily basis. Denied any fever or chills. No cough or sputum production. No recent illnesses or sick contacts. No recent travel. chest x-ray showedno acute process. Next and EKG showed normal sinus rhythm. laboratory data showedWBC 9.4, hemoglobin 17.1 and platelets 140 BUN 7 creatinine 0.4 to bicarb is 18 sodium 136 potassium 3.9 chloride 103, AST 52 ALT 65 alk phos 89 Troponin 0.047, 0.053, 0.056, lipase 93 LDL 168 and triglycerides 630. 07/17/2020 Patient had a cardiac catheterization and stent to RCA and LAD clinically doing well will be discharged today excessive counseling regarding nicotine cessation on all call cessation was provided and patient said she will try quitting both. PHYSICAL EXAMINATION: GENERAL: The patient is alert and oriented x3, not in any acute distress. Well developed, well nourished. HEENT: Pupils are round and equally reacting to light. EOMI. No scleral icterus. No conjunctival pallor. Normocephalic, atraumatic. No pharyngeal erythema. No thyromegaly. CARDIOVASCULAR: S1 and S2 present. No murmurs, rubs, or gallops. PULMONARY: Chest is clear to auscultation, no wheezing or crackles. ABDOMEN: Soft, nontender, nondistended, normoactive bowel sounds. No palpable organomegaly. MUSCULOSKELETAL: No joint swelling or deformity. EXTREMITIES: No cyanosis, clubbing, or pedal edema. NEUROLOGICAL: Gross neurological examination did not reveal any focal deficits. SKIN: No rashes. Acute non-ST elevated [place] status post stent placement Intermittent left retrosternalchest pain for the past 1 month Hyperlipidemia with [id number] Hypertriglyceridemia triglycerides 630 daily alcohol use mild transaminitis Ongoing nicotine addiction Depression/anxiety Chronic back pain and scoliosis Plan - Discharge Summary Discharge Rx Participant: Yes New Discharge Prescriptions: New Prasugrel [Effient] 10 mg PO DAILY #90 tab Metoprolol Tartrate [Lopressor] 25 mg PO BID #60 tab Aspirin 81 mg PO DAILY #30 chew Atorvastatin [Lipitor] 80 mg PO HS #30 tab Nitroglycerin Sl Tabs [Nitrostat] 0.4 mg SUBLINGUAL Q5M PRN #30 tab PRN Reason: Chest Pain Thiamine [Vitamin B-1] 100 mg PO DAILY #30 tablet No Action Montelukast [Singulair] 10 mg PO HS Ibuprofen [Motrin] 600 mg PO Q8HR PRN PRN Reason: Pain Famotidine [Pepcid] 20 mg PO BID Albuterol Sulfate [Ventolin HFA] 2 puff INHALATION RT-Q4H PRN PRN Reason: Shortness Of Breath Cymbalta 1 dose PO DIRECTED Discharge Medication List Famotidine [Pepcid] 20 mg PO BID 03/25/19 [History] Ibuprofen [Motrin] 600 mg PO Q8HR PRN 03/25/19 [History] Montelukast [Singulair] 10 mg PO HS 03/25/19 [History] Albuterol Sulfate [Ventolin HFA] 2 puff INHALATION RT-Q4H PRN 12/31/19 [History] Cymbalta 1 dose PO DIRECTED 07/15/20 [History] Aspirin 81 mg PO DAILY #30 chew 07/17/20 [Rx] Atorvastatin [Lipitor] 80 mg PO HS #30 tab 07/17/20 [Rx] Metoprolol Tartrate [Lopressor] 25 mg PO BID #60 tab 07/17/20 [Rx] Nitroglycerin Sl Tabs [Nitrostat] 0.4 mg SUBLINGUAL Q5M PRN #30 tab 07/17/20 [Rx] Prasugrel [Effient] 10 mg PO DAILY #90 tab 07/17/20 [Rx] Thiamine [Vitamin B-1] 100 mg PO DAILY #30 tablet 07/17/20 [Rx] Follow up Appointment(s)/Referral(s): Dean Strange MD [STAFF PHYSICIAN] - 07/26/20 1:45 pm (with DR BASSETT) Tracey Freire MD [Primary Care Provider] - 3 Days (please call when open to make follow up appointment) Patient Instructions/Handouts: *Surgery [facility] - After Heart Catheterization - [employer] Instructions Discharge Disposition: HOME SELF-CARE
[2020-07-18] MEDS ORDERED: PRASUGREL 10 MG TAB PO SCH (09:00)
== END 2020-07-17 13:01 | disposition home or self-care (01) | DRG 247 ==
LOC: EC 18:13 → 3SCARD 20:31
PROVIDERS: ADMIT Hospitalist; ATTEND Hospitalist
PROC: 027135Z Dilation of Coronary Artery, Two Arteries with Two Drug-eluting Intraluminal Devices, Percutaneous Approach (ICD-10-PCS; principal; 2020-07-16 11:10)
PROC: 4A023N7 Measurement of Cardiac Sampling and Pressure, Left Heart, Percutaneous Approach (ICD-10-PCS; 2020-07-16 11:10)
PROC: B2111ZZ Fluoroscopy of Multiple Coronary Arteries using Low Osmolar Contrast (ICD-10-PCS; 2020-07-16 11:10)
DX: I21.4 Non-ST elevation (NSTEMI) myocardial infarction (principal); E78.1 Pure hyperglyceridemia; F31.9 Bipolar disorder, unspecified; Z20.822 Contact with and (suspected) exposure to COVID-19; I25.10 Atherosclerotic heart disease of native coronary artery without angina pectoris; E78.5 Hyperlipidemia, unspecified; J45.909 Unspecified asthma, uncomplicated; K21.9 Gastro-esophageal reflux disease without esophagitis; G47.30 Sleep apnea, unspecified; F41.9 Anxiety disorder, unspecified; F10.10 Alcohol abuse, uncomplicated; M54.9 Dorsalgia, unspecified; G89.29 Other chronic pain; M41.9 Scoliosis, unspecified; R74.01 Elevation of levels of liver transaminase levels; F17.200 Nicotine dependence, unspecified, uncomplicated; Z71.6 Tobacco abuse counseling; Z79.899 Other long term (current) drug therapy; Z91.5 Personal history of self-harm; Z88.0 Allergy status to penicillin
CPT/HCPCS: 36415; 71046; 80048; 80053; 80061; 83690; 83721; 83735; 84484; 85025; 85610; 85730; 87635; 93005; 93306; 93458; 99291

== ENCOUNTER 2020-10-06 20:24 | Observation (INO) | payer OTHER ==
[2020-10-06] MEDS ORDERED: NITROGLYCERIN SL TABS 0.4 MG TAB SUBLINGUAL STA (20:54)
--- NOTE | 2020-10-06 20:59 | ED ---
Chest Pain HPI - General Chief Complaint: Chest Pain Stated Complaint: Chest Pain Time Seen by Provider: 10/06/20 20:45 Source: patient, RN notes reviewed Mode of arrival: wheelchair Limitations: no limitations - History of Present Illness Initial Comments: 45-year-old female history depression also history of an CO 2 months ago who is a smoker who states that she had the onset of retrosternal left-sided chest pain or past 2 weeks is been intermittent associated with nausea and vomiting also some shortness of breath. He states this all left-sided currently 6/10 severity sometimes a little bit worse. She states it feels identical to what she had with her previous CO. MD Complaint: chest pain - Related Data Home Medications Medication Instructions Recorded Confirmed Famotidine [Pepcid] 20 mg PO BID 03/25/19 10/06/20 Ibuprofen [Motrin] 600 mg PO Q8HR PRN 03/25/19 10/06/20 Montelukast [Singulair] 10 mg PO DAILY 03/25/19 10/06/20 Albuterol Sulfate [Ventolin HFA] 2 puff INHALATION RT-Q4H PRN 12/31/19 10/06/20 Cymbalta 1 dose PO DIRECTED 07/15/20 10/06/20 Albuterol Nebulized [Ventolin 2.5 mg INHALATION RT-Q8H PRN 10/06/20 10/06/20 Nebulized] Atorvastatin [Lipitor] 80 mg PO DAILY 10/06/20 10/06/20 Fluticasone/Salmeterol [Advair 1 puff INHALATION RT-BID 10/06/20 10/06/20 250-50 Diskus] Prasugrel HCl 10 mg PO DAILY 10/06/20 10/06/20 hydrOXYzine pamoate [hydrOXYzine 25 mg PO BID PRN 10/06/20 10/06/20 PAMOATE] metFORMIN HCL 500 mg PO DAILY 10/06/20 10/06/20 Previous Rx's Medication Instructions Recorded Aspirin 81 mg PO DAILY #30 chew 07/17/20 Metoprolol Tartrate [Lopressor] 25 mg PO BID #60 tab 07/17/20 Nitroglycerin Sl Tabs [Nitrostat] 0.4 mg SUBLINGUAL Q5M PRN #30 tab 07/17/20 Prasugrel [Effient] 10 mg PO DAILY #90 tab 07/17/20 Allergies Allergy/AdvReac Type Severity Reaction Status Date / Time Penicillins Allergy Unknown Hives, Verified 10/06/20 21:41 Fever, Swellingand unknown other reaction Review of Systems ROS Statement: Those systems with pertinent positive or pertinent negative responses have been documented in the HPI. ROS Other: All systems not noted in ROS Statement are negative. EKG Findings - EKG Results: EKG: interpreted by SALTY, sinus rhythm (Normal sinus rhythm 84. Interval 1:30 QRS duration 80 QT since QTC 366/[address]-T wave changes seen at this time) Past Medical History Past Medical History: Asthma, GERD/Reflux, Myocardial Infarction (CO), Sleep Apnea/CPAP/BIPAP Additional Past Medical History / Comment(s): scoliosis, back pain, frequent diarrhea, wearing brace right knee. History of Any Multi-Drug Resistant Organisms: None Reported Past Surgical History: Heart Catheterization With Stent Past Anesthesia/Blood Transfusion Reactions: Motion Sickness Additional Past Anesthesia/Blood Transfusion Reaction / Comment(s): patient has never received anesthesia. Past Psychological History: Anxiety Smoking Status: Current some day smoker Past Alcohol Use History: Daily Past Drug Use History: Marijuana - Past Family History Mother Family Medical History: Unable to Obtain Additional Family Medical History / Comment(s): pt states unknown family hx. General Exam - General Exam Comments Initial Comments: This is a well-developed oriented x3 female with the smell of alcohol conjoiners on her breath Limitations: no limitations General appearance: alert, anxious Head exam: Present: atraumatic, normocephalic, normal inspection Eye exam: Present: normal appearance, PERRL, EOMI. Absent: scleral icterus, conjunctival injection, periorbital swelling ENT exam: Present: normal exam, mucous membranes moist Neck exam: Present: normal inspection. Absent: tenderness, meningismus, lymphadenopathy Respiratory exam: Present: normal lung sounds bilaterally, chest wall tenderness. Absent: respiratory distress, wheezes, rales, rhonchi, stridor Cardiovascular Exam: Present: regular rate, normal rhythm, normal heart sounds. Absent: systolic murmur, diastolic murmur, rubs, gallop, clicks GI/Abdominal exam: Present: soft, normal bowel sounds. Absent: distended, tenderness, guarding, rebound, rigid Extremities exam: Present: normal inspection, full ROM, normal capillary refill. Absent: tenderness, pedal edema, joint swelling, calf tenderness Back exam: Present: normal inspection Neurological exam: Present: alert, oriented X3, CN II-XII intact Psychiatric exam: Present: normal affect, normal mood Skin exam: Present: warm, dry, intact, normal color. Absent: rash Course Vital Signs 10/06/20 10/06/20 10/06/20 20:38 21:00 22:32 Temperature 98.6 F Pulse Rate 85 76 Pulse Rate [ 74 Sitting Pulse Oximetery] Respiratory 20 18 Rate Blood Pressure 115/76 116/73 O2 Sat by Pulse 93 L 95 Oximetry - Reevaluation(s) Reevaluation #1: 10/06/20 22:44 Patient still is having some discomfort though she is improved. Chest Pain MDM - MDM Imaging unremarkable I did discuss findings with patient and her initial workup was negative she does have evidence of alcohol level she'll be admitted with cardiology consultation. I did discuss this with Jennifer Lundberg covering for Dr. Handy Critical Care Time Critical Care Time: Yes Total Critical Care Time: 31 Critical Care Time: Critical care time includes initial presentation with history physical labs x- rays multiple reevaluation the patient review of old charting discussed with patient regarding findings discussion with the admitting service admission orders and documentation of the above Disposition Clinical Impression: Chest pain, Unstable angina, Atypical chest pain, Alcohol intoxication Disposition: ADMITTED IP TO THIS [facility] Condition: Fair Referrals: Tracey Freire MD [Primary Care Provider] - 1-2 days
[2020-10-06 21:44] LABS: Basophils # (A) 0.2 k/uL (0-0.2); Basophils % (A) 2 %; Eosinophils # (A) 0.2 k/uL (0-0.7); Eosinophils % (A) 2 %; HCT 51.4 % (34.0-46.0); HGB 17.5 gm/dL (11.4-16.0); Lymphocytes # (A) 3.4 k/uL (1.0-4.8); Lymphocytes % (A) 29 %; MCH 32.4 pg (25.0-35.0); MCV 95.2 fL (80.0-100.0); Mean Platelet Volume 11.5; Monocytes # (A) 0.4 k/uL (0-1.0); Monocytes % (A) 4 %; Neutrophils # (A) 7.3 k/uL (1.3-7.7); Neutrophils % (A) 62 %; Platelet Count 181 k/uL (150-450); RDW 13.9 % (11.5-15.5); WBC 11.7 k/uL (3.8-10.6)
--- NOTE | 2020-10-06 21:56 | XR ---
EXAMINATION TYPE: XR chest 2V DATE OF EXAM: 10/06/2020 COMPARISON: NONE HISTORY: Chest pain TECHNIQUE: 2 views FINDINGS: Heart and mediastinum are normal. Lungs are clear. Diaphragm is normal. Bony thorax is inta ct. IMPRESSION: Normal chest. No change.
[2020-10-06 21:57] LABS: INR 0.9 (<1.2); Partial Thromboplastin Time 22.3 sec (22.0-30.0); Prothrombin Time 10.2 sec (9.0-12.0)
[2020-10-06 22:05] LABS: ALT 95 U/L (4-34); AST 52 U/L (14-36); African American GFR (CKD) >90 (>60 ml/min/1.73 sqM); Albumin 4.8 g/dL (3.5-5.0); Alkaline Phosphatase 98 U/L (38-126); Anion Gap 15 mmol/L; Blood Urea Nitrogen 5 mg/dL (7-17); Calcium 9.8 mg/dL (8.4-10.2); Carbon Dioxide 17 mmol/L (22-30); Chloride 106 mmol/L (98-107); Glucose 182 mg/dL (74-99); Lipase 180 U/L (23-300); Magnesium 2.1 mg/dL (1.6-2.3); Non-African American GFR(CKD) >90 (>60 ml/min/1.73 sqM); Potassium 4.3 mmol/L (3.5-5.1); Sodium 138 mmol/L (137-145); Total Bilirubin 0.3 mg/dL (0.2-1.3); Total Protein 7.8 g/dL (6.3-8.2)
[2020-10-06 22:15] LABS: Alcohol 197 mg/dL
[2020-10-06 22:21] LABS: Creatine Kinase 40 U/L (30-135)
[2020-10-06] MEDS ORDERED: HEPARIN SODIUM 1,000 UN/ML (10ML VL) IV ONE (22:47)
[2020-10-06] MEDS ORDERED: NITROGLYCERIN SL TABS 0.4 MG TAB SUBLINGUAL PRN (22:47)
[2020-10-06] MEDS ORDERED: hydrOXYzine pamoate 25 MG CAP PO PRN (22:48)
[2020-10-06] MEDS ORDERED: IBUPROFEN 600 MG TAB PO PRN (22:48)
[2020-10-06] MEDS ORDERED: ALBUTEROL NEBULIZED 2.5 MG/3 ML INHALATION PRN (22:48)
[2020-10-06] MEDS ORDERED: CYMBALTA PO SCH (23:00)
[2020-10-06] MEDS ORDERED: SODIUM CHLORIDE 0.9% 1,000 ML IV SCH (23:00)
[2020-10-06] MEDS ORDERED: HEPARIN SOD,PORK IN 0.45% NACL 25,000 UNIT in 0.45% NACL 1 250ML.BAG IV SCH (23:00)
[2020-10-06] MEDS ORDERED: NICOTINE 21MG/24HR PATCH TRANSDERM STA (23:13)
[2020-10-07] MEDS: NITROGLYCERIN OINT 1 INCH/GM PACKET TOPICAL SCH ×3 (01:00→13:10)
[2020-10-07] MEDS ORDERED: SYMBICORT 80-4.5 MCG INHALER INHALATION SCH (08:00)
[2020-10-07] MEDS ORDERED: ASPIRIN 81 MG PO SCH (09:00)
[2020-10-07] MEDS ORDERED: FAMOTIDINE 20 MG TAB PO SCH (09:00)
[2020-10-07] MEDS ORDERED: ATORVASTATIN 80 MG TAB PO SCH (09:00)
[2020-10-07] MEDS ORDERED: MONTELUKAST 10 MG TAB PO SCH (09:00)
[2020-10-07] MEDS ORDERED: PRASUGREL 10 MG TAB PO SCH (09:00)
[2020-10-07] MEDS ORDERED: ASPIRIN 325 MG TAB PO SCH (09:00)
[2020-10-07] MEDS ORDERED: METOPROLOL TARTRATE 25 MG TAB PO SCH (09:00)
[2020-10-07] MEDS ORDERED: metFORMIN 500 MG TAB PO SCH (09:00)
[2020-10-07 09:34] LABS: Glucose,Whole Blood 172 mg/dL (75-99)
--- NOTE | 2020-10-07 10:15 | P.CRDCN ---
History of Present Illness History of present illness: HISTORY OF PRESENTING ILLNESS This is a pleasant 45-year-old female past medical history significant for recent NSTEMI in July 2020 with PCI to proximal RCA and Mid LAD, coronary artery disease, dyslipidemia, chronic nicotine dependence and alcohol use. She follows in the office with Dr. Wasserman. We have been asked to see in consultation for chest pain. Patient is seen and examined at bedside, no acute distress. Patient states that she started having left-sided chest pain 2 weeks ago. It is nonradiating, nonexertional. She rates it a 5/10. 2 weeks ago it started as intermittent, it would come and go. However over the last couple days her chest pain has been constant and she decided to present to the emergency department. She states that she has not been 100% compliant with her medications at home. She occasionally does miss doses of her medications. She states she did have some mild shortness of breath, and nausea. She was concerned patient that I felt similar to her IA in July. She states she smoked 1 pack per day, but quit 3 days ago. She also continues to drink alcohol. She does occasionally use marijuana. She denies symptoms of lightheadedness, dizziness, symptoms of orthopnea or PND, denies palpitations. She denies any injury to her chest. DIAGNOSTICS EKG reveals sinus rhythm, heart rate 84, no significant STT wave abnormalities. EKG this morning was also normal. Telemetry tracings indicate sinus mechanism Chest xray no acute abnormalities. Echocardiogram on 07/16/2020 revealed left ventricular systolic function is normal with an EF 5560 percent, trace mitral regurgitation, trace tricuspid regurgitation. Laboratory reviewed, troponin negative 4, d-dimer negative, proBNP 46, WBC 11.7, hemoglobin 17.5, platelets 181, sodium 138, potassium 4.3, BUN 5, serum creatinine 0.3, magnesium 2.1, serum alcohol level elevated at 197 Current home cardiac medications include aspirin 81 mg daily, atorvastatin 80 mg daily, metoprolol titrate 25 mg by mouth daily, Prasugrel 10 mg daily REVIEW OF SYSTEMS At the time of my exam: CONSTITUTIONAL: Denies fever or chills. CARDIOVASCULAR: +chest pain, +mild shortness of breath. Denies orthopnea, PND or palpitations. RESPIRATORY: Denies cough. GASTROINTESTINAL: +nausea. Denies abdominal pain, diarrhea, constipation, nausea MUSCULOSKELETAL: Denies myalgias. NEUROLOGIC: Denies numbness, tingling, headacbe or weakness. ENDOCRINE: Denies fatigue, weight change, polydipsia or polyurina. GENITOURINARY: Denies burning, hematuria or urgency with micturation. HEMATOLOGIC: Denies history of anemia or bleeding. PHYSICAL EXAMINATION Blood pressure 122/74 heart rate 89 afebrile and maintaining oxygen saturation on 2L nasal cannula CONSTITUTIONAL: No apparent distress. HEENT: Head is normocephalic. Pupils are equal, round. Sclerae anicteric. Mucous membranes of the mouth are moist. No JVD. No carotid bruit. CHEST EXAMINATION: Lungs are clear to auscultation. No chest wall tenderness is noted on palpation or with deep breathing. HEART EXAMINATION: Regular rate and rhythm. S1, S2 heard. No murmurs, gallops or rub. ABDOMEN: Soft, nontender. Positive bowel sounds. EXTREMITIES: 2+ peripheral pulses, no lower extremity edema and no calf tenderness. NEUROLOGIC EXAMINATION: Patient is awake, alert and oriented x3. ASSESSMENT Chest pain, atypical, acute coronary syndrome has been ruled out. Coronary artery disease, with Recent NSTEMI in July 2020 s/p PCI to proximal RCA and Mid LAD Dyslipidemia Chronic nicotine dependence Alcohol abuse PLAN Repeat EKG this morning is normal with no acute findings suggestive of ischemia. Repeat troponin negative, patient with a total of 4 negative troponins. Stop heparin drip Decrease aspirin to 81mg daily Continue home cardiac medications. Educated patient on importance of taking her medications as prescribed. Smoking and alcohol cessation discussed and highly recommended. From a cardiology perspective, no further cardiac workup indicated at this time. We will sign off. Patient follow up with Dr. Wasserman in the office. Nurse Practitioner note has been reviewed, I agree with a documented findings and plan of care. Patient was seen and examined. Past Medical History Past Medical History: Asthma, GERD/Reflux, Myocardial Infarction (IA), Sleep Apnea/CPAP/BIPAP Additional Past Medical History / Comment(s): scoliosis, back pain, frequent diarrhea, wearing brace right knee. Last Myocardial Infarction Date:: 2020 History of Any Multi-Drug Resistant Organisms: None Reported Past Surgical History: Back Surgery, Heart Catheterization With Stent Past Anesthesia/Blood Transfusion Reactions: Motion Sickness Additional Past Anesthesia/Blood Transfusion Reaction / Comment(s): patient has never received anesthesia. Date of Last Stent Placement:: July 14, 2020 Smoking Status: Current every day smoker - Past Family History Mother Family Medical History: Unable to Obtain Additional Family Medical History / Comment(s): pt states unknown family hx. Medications and Allergies Home Medications Medication Instructions Recorded Confirmed Type Famotidine [Pepcid] 20 mg PO BID 03/25/19 10/06/20 History Ibuprofen [Motrin] 600 mg PO Q8HR PRN 03/25/19 10/06/20 History Montelukast [Singulair] 10 mg PO DAILY 03/25/19 10/06/20 History Albuterol Sulfate [Ventolin HFA] 2 puff INHALATION RT-Q4H PRN 12/31/19 10/06/20 History Cymbalta 1 dose PO DIRECTED 07/15/20 10/06/20 History Aspirin 81 mg PO DAILY #30 chew 07/17/20 10/06/20 Rx Metoprolol Tartrate [Lopressor] 25 mg PO BID #60 tab 07/17/20 10/06/20 Rx Nitroglycerin Sl Tabs [Nitrostat] 0.4 mg SUBLINGUAL Q5M PRN #30 tab 07/17/20 10/06/20 Rx Prasugrel [Effient] 10 mg PO DAILY #90 tab 07/17/20 10/06/20 Rx Albuterol Nebulized [Ventolin 2.5 mg INHALATION RT-Q8H PRN 10/06/20 10/06/20 History Nebulized] Atorvastatin [Lipitor] 80 mg PO DAILY 10/06/20 10/06/20 History Fluticasone/Salmeterol [Advair 1 puff INHALATION RT-BID 10/06/20 10/06/20 History 250-50 Diskus] Prasugrel HCl 10 mg PO DAILY 10/06/20 10/06/20 History hydrOXYzine pamoate [hydrOXYzine 25 mg PO BID PRN 10/06/20 10/06/20 History PAMOATE] metFORMIN HCL 500 mg PO DAILY 10/06/20 10/06/20 History Allergies Allergy/AdvReac Type Severity Reaction Status Date / Time Penicillins Allergy Unknown Hives, Verified 10/06/20 21:41 Fever, Swellingand unknown other reaction Physical Exam Vitals: Vital Signs Temp Pulse Pulse Resp BP BP Pulse Ox 10/07/20 07:23 97.4 F L 89 14 122/74 93 L 10/07/20 04:09 98.9 F 90 18 119/87 95 10/07/20 03:00 87 18 10/07/20 02:00 84 18 10/06/20 22:32 76 18 116/73 95 10/06/20 21:00 74 10/06/20 20:38 98.6 F 85 20 115/76 93 L Intake and Output 10/06/20 10/07/20 10/07/20 22:59 06:59 14:59 Other: Weight 56.699 kg 56.699 kg Results 10/06/20 21:09 10/06/20 21:09 Cardiac Enzymes 10/06/20 10/06/20 10/07/20 Range/Units 21:09 21:09 00:00 AST 52 H (14-36) U/L Troponin I <0.012 <0.012 (0.000-0.034) ng/mL 10/07/20 Range/Units 06:07 AST (14-36) U/L Troponin I <0.012 (0.000-0.034) ng/mL Coagulation 10/06/20 10/07/20 Range/Units 21:09 06:07 PT 10.2 (9.0-12.0) sec APTT 22.3 27.6 (22.0-30.0) sec CBC 10/06/20 Range/Units 21:09 WBC 11.7 H (3.8-10.6) k/uL RBC 5.40 (3.80-5.40) m/uL Hgb 17.5 H (11.4-16.0) gm/dL Hct 51.4 H (34.0-46.0) % Plt Count 181 (150-450) k/uL Comprehensive Metabolic Panel 10/06/20 Range/Units 21:09 Sodium 138 (137-145) mmol/L Potassium 4.3 (3.5-5.1) mmol/L Chloride 106 (98-107) mmol/L Carbon Dioxide 17 L (22-30) mmol/L BUN 5 L (7-17) mg/dL Creatinine 0.32 L (0.52-1.04) mg/dL Glucose 182 H (74-99) mg/dL Calcium 9.8 (8.4-10.2) mg/dL AST 52 H (14-36) U/L ALT 95 H (4-34) U/L Alkaline Phosphatase 98 (38-126) U/L Total Protein 7.8 (6.3-8.2) g/dL Albumin 4.8 (3.5-5.0) g/dL Current Medications Generic Name Dose Route Start Last Admin Trade Name Freq PRN Reason Stop Dose Admin Albuterol Sulfate 2.5 mg 10/06/20 22:48 Albuterol Nebulized 2.5 Mg/3 Ml INHALATION RT-Q8H PRN Shortness Of Breath Aspirin 325 mg 10/07/20 09:00 Aspirin 325 Mg Tab PO DAILY [facility] Atorvastatin Calcium 80 mg 10/07/20 09:00 Atorvastatin 80 Mg Tab PO DAILY [facility] Budesonide/Formoterol Fumarate 2 puff 10/07/20 08:00 10/07/20 07:05 Symbicort 80-4.5 Mcg Inhaler INHALATION 2 puff RT-BID JENNIFER Administration Famotidine 20 mg 10/07/20 09:00 Famotidine 20 Mg Tab PO BID JENNIFER Hydroxyzine Pamoate 25 mg 10/06/20 22:48 Hydroxyzine Pamoate 25 Mg Cap PO BID PRN Anxiety Sodium Chloride 1,000 mls @ 20 mls/hr 10/06/20 23:00 10/07/20 05:58 Saline 0.9% IV 20 mls/hr .Q24H JENNIFER Administration Heparin Sodium/Sodium Chloride 250 mls @ 6.804 mls/hr 10/06/20 23:00 10/06/20 23:11 25,000 unit/ Sodium Chloride IV 12 units/kg/hr .Q24H JENNIFER 6.804 mls/hr Administration Protocol 12 UNITS/KG/HR Ibuprofen 600 mg 10/06/20 22:48 Ibuprofen 600 Mg Tab PO Q8HR PRN Pain Insulin Aspart 0 unit 10/07/20 07:30 Insulin Aspart (Novolog) 100 Unit/Ml Vial SQ ACHS [facility] Protocol Metformin HCl 500 mg 10/07/20 09:00 Metformin 500 Mg Tab PO DAILY [facility] Metoprolol Tartrate 25 mg 10/07/20 09:00 Metoprolol Tartrate 25 Mg Tab PO BID [facility] Montelukast Sodium 10 mg 10/07/20 09:00 Montelukast 10 Mg Tab PO DAILY [facility] Nitroglycerin 0.4 mg 10/06/20 22:47 Nitroglycerin Sl Tabs 0.4 Mg Tab SUBLINGUAL Q5M PRN Chest Pain Nitroglycerin 1 inch 10/07/20 00:00 10/07/20 06:46 Nitroglycerin Oint 1 Inch/Gm Packet TOPICAL Not Given Q6HR [facility] Prasugrel 10 mg 10/07/20 09:00 Prasugrel 10 Mg Tab PO DAILY [facility] Intake and Output 10/06/20 10/07/20 10/07/20 22:59 06:59 14:59 Other: Weight 56.699 kg 56.699 kg Patient Weight 10/08/20 06:59 Weight 56.699 kg 10/06/20 21:09 10/06/20 21:09
[2020-10-07 12:06] LABS: Glucose,Whole Blood 197 mg/dL (75-99)
[2020-10-07] MEDS: INSULIN ASPART (NovoLOG) 100 UNIT/ML VIAL SQ SCH ×2 (12:27→12:52)
[2020-10-07 13:24] LABS: Chol/HDL Ratio 8.06
[2020-10-07 14:35] VITALS: BP 117/77; PULSE 76; RESP 18; TEMP 98
--- NOTE | 2020-10-08 16:06 | P.HPIM ---
History of Present Illness H&P Date: 10/07/20 Chief Complaint: Chest pain Patient is a 45-year-old female with a known history of coronary artery disease with history of stent placement, obstructive sleep apnea, scoliosis, chronic back pain and on follow-up with pain clinic clinic, GERD, asthma and currently every day smoker presents ER with complaints of chest pain for the past 2 weeks. Patient says that her pain is mainly in the epigastric and left retrosternal region. Denied any radiation of the pain. Patient has been having constant pain 5 out of 10. Intermittently worsening. For the last 2 days symptoms are getting worse and pain has been constant pain made her to come to ER. Denied any complaints of nausea or vomiting. Denied any dizziness or lightheadedness. No cough or sputum production. No fever no chills. Denied any recent illnesses. Patient says that she is noncompliant with her medications. Asked line chest x-ray showed no acute cardiopulmonary process. EKG showed normal sinus rhythm with no ST-T wave abnormalities. Laboratory data showed WBC 11.7 hemoglobin 17.5 and platelets 181 D-dimer is not elevated at 0.38 BUN 5 and creatinine 0.32 and blood sugar is 182 Triglycerides 465, total cholesterol 274 and LDL 184, lipase 180 and serum alcohol level is 197 Review of Systems Constitutional: Patient denies any fever or chills . No generalized weakness or weight loss. Abdomen: Patient denied nausea vomiting and diarrhea and abdominal pain. Cardiovascular: Patient does complain of chest pain and mild shortness of breath. No palpitations no leg swelling.. Respiratory: patient denied any cough is from production. No shortness of breath Neurologic: Patient denied any numbness or tingling headache. Musculoskeletal: Patient denies any complaints of joint swelling or deformity. Skin: Negative Psychiatric: Negative Endocrine: No heat or cold intolerance. No recent weight gain. Genitourinary: No dysuria or hematuria. All other 14 point ROS negative except the above Past Medical History Past Medical History: Asthma, GERD/Reflux, Myocardial Infarction (SD), Sleep Apnea/CPAP/BIPAP Additional Past Medical History / Comment(s): scoliosis, back pain, frequent diarrhea, wearing brace right knee. Last Myocardial Infarction Date:: 2020 History of Any Multi-Drug Resistant Organisms: None Reported Past Surgical History: Back Surgery, Heart Catheterization With Stent Past Anesthesia/Blood Transfusion Reactions: Motion Sickness Additional Past Anesthesia/Blood Transfusion Reaction / Comment(s): patient has never received anesthesia. Date of Last Stent Placement:: July 14, 2020 Smoking Status: Current every day smoker - Past Family History Mother Family Medical History: Unable to Obtain Additional Family Medical History / Comment(s): pt states unknown family hx. Medications and Allergies Home Medications Medication Instructions Recorded Confirmed Type Montelukast [Singulair] 10 mg PO DAILY 03/25/19 10/06/20 History Albuterol Sulfate [Ventolin HFA] 2 puff INHALATION RT-Q4H PRN 12/31/19 10/06/20 History Cymbalta 1 dose PO DIRECTED 07/15/20 10/06/20 History Aspirin 81 mg PO DAILY #30 chew 07/17/20 10/06/20 Rx Metoprolol Tartrate [Lopressor] 25 mg PO BID #60 tab 07/17/20 10/06/20 Rx Nitroglycerin Sl Tabs [Nitrostat] 0.4 mg SUBLINGUAL Q5M PRN #30 tab 07/17/20 10/06/20 Rx Albuterol Nebulized [Ventolin 2.5 mg INHALATION RT-Q8H PRN 10/06/20 10/06/20 History Nebulized] Atorvastatin [Lipitor] 80 mg PO DAILY 10/06/20 10/06/20 History Fluticasone/Salmeterol [Advair 1 puff INHALATION RT-BID 10/06/20 10/06/20 History 250-50 Diskus] Prasugrel HCl 10 mg PO DAILY 10/06/20 10/06/20 History hydrOXYzine pamoate [hydrOXYzine 25 mg PO BID PRN 10/06/20 10/06/20 History PAMOATE] metFORMIN HCL 500 mg PO DAILY 10/06/20 10/06/20 History Famotidine [Pepcid] 20 mg PO BID #30 tab 10/07/20 Rx Allergies Allergy/AdvReac Type Severity Reaction Status Date / Time Penicillins Allergy Unknown Hives, Verified 10/06/20 21:41 Fever, Swellingand unknown other reaction Physical Exam Vitals: Vital Signs Temp Pulse Pulse Resp BP BP Pulse Ox 10/07/20 08:28 93 L 10/07/20 08:00 89 14 10/07/20 07:23 97.4 F L 89 14 122/74 93 L 10/07/20 04:09 98.9 F 90 18 119/87 95 10/07/20 03:00 87 18 10/07/20 02:00 84 89 14 10/06/20 22:32 76 18 116/73 95 10/06/20 21:00 74 10/06/20 20:38 98.6 F 85 20 115/76 93 L Intake and Output 10/06/20 10/07/20 10/07/20 22:59 06:59 14:59 Intake Total 100 100 Balance 100 100 Intake: Oral 100 100 Other: Voiding Method Toilet Toilet # Voids 1 1 Weight 56.699 kg 56.699 kg PHYSICAL EXAMINATION: Patient is lying in the bed comfortably, no acute distress, awake alert and oriented.. HEENT: Normocephalic. Neck is supple. Pupils reactive. Nostrils clear. Oral cavity is moist. Neck reveals no JVD, carotid bruits, or thyromegaly. CHEST EXAMINATION: Trachea is central. Symmetrical expansion. Lung altamirano clear to auscultation and percussion. CARDIAC: Normal S1, S2 with no gallops. No murmurs ABDOMEN: Soft. Bowel sounds normal. No organomegaly. No abdominal bruits. Extremities: reveal no edema. No clubbing or cyanosis Neurologically awake, alert, oriented x3 with well-coordinated movements. No focal deficits noted Skin: No rash or skin lesions. Psychiatric: Coperative. Nonsuicidal Musculoskeletal: No joint swelling or deformity. Normal range of motion. Results CBC & Chem 7: 10/06/20 21:09 10/06/20 21:09 Labs: Abnormal Lab Results - Last 24 Hours (Table) 10/06/20 10/06/20 10/07/20 Range/Units 21:09 21:09 09:12 WBC 11.7 H (3.8-10.6) k/uL Hgb 17.5 H (11.4-16.0) gm/dL Hct 51.4 H (34.0-46.0) % Carbon Dioxide 17 L (22-30) mmol/L BUN 5 L (7-17) mg/dL Creatinine 0.32 L (0.52-1.04) mg/dL Glucose 182 H (74-99) mg/dL POC Glucose (mg/dL) 172 H (75-99) mg/dL AST 52 H (14-36) U/L ALT 95 H (4-34) U/L 10/07/20 Range/Units 11:55 WBC (3.8-10.6) k/uL Hgb (11.4-16.0) gm/dL Hct (34.0-46.0) % Carbon Dioxide (22-30) mmol/L BUN (7-17) mg/dL Creatinine (0.52-1.04) mg/dL Glucose (74-99) mg/dL POC Glucose (mg/dL) 197 H (75-99) mg/dL AST (14-36) U/L ALT (4-34) U/L Thrombosis Risk Factor Assmnt - DVT/VTE Prophylaxis DVT/VTE Prophylaxis: Pharmacologic Prophylaxis ordered - Choose All That Apply Any of the Below Risk Factors Present?: Yes Each Factor Represents 1 point: Abnormal pulmonary function (COPD), Age 41-60 years Thrombosis Risk Factor Assessment Total Risk Factor Score: 2 Thrombosis Risk Factor Assessment Level: Low Risk Assessment and Plan Assessment: Acute alcohol intoxication on admission with alcohol level of 197 Chest pain atypical. Rule out ACS. Possible alcoholic gastritis Hyperlipidemia Coronary artery with history of stent placement GERD History of SD Opted to sleep apnea Chronic back pain and history of back surgery Chronic pain on follow-up with pain clinic next and scoliosis Currently with a smoker Noncooperative medications Plan: Patient was started on heparin drip. Patient will be continued on telemetry monitoring. Serial EKGs and troponins 3 negative. Cardiology has seen the patient and recommended to continue cardiac medications including aspirin, statins and dual antiplatelet agents. Counseled for medication compliance. Smoking cessation and alcohol abuse has been counseled extensively. Continue to follow closely. Monitor for withdrawal symptoms. Time with Patient: Greater than 30
--- NOTE | 2020-10-08 16:07 | P.DS ---
Providers Date of admission: 10/06/20 22:47 Expected date of discharge: 10/07/20 Attending physician: Messi Handy Consults: 10/06/20 22:47 Consult Physician Urgent Consulting Provider: Tony Medina Consult Reason/Comments: Chest pain Do you want consulting provider notified?: Yes, Notify in am Primary care physician: [facility] Course: Discharge diagnosis Acute alcohol intoxication on admission with alcohol level of 197 Chest pain atypical. Ruled out ACS. 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 Patient is a 45-year-old female with a known history of coronary artery disease with history of stent placement, obstructive sleep apnea, scoliosis, chronic back pain and on follow-up with pain clinic clinic, GERD, asthma and currently every day smoker presents ER with complaints of chest pain for the past 2 weeks. Patient says that her pain is mainly in the epigastric and left retrosternal region. Denied any radiation of the pain. Patient has been having constant pain 5 out of 10. Intermittently worsening. For the last 2 days symptoms are getting worse and pain has been constant pain made her to come to ER. Denied any complaints of nausea or vomiting. Denied any dizziness or lightheadedness. No cough or sputum production. No fever no chills. Denied any recent illness es. Patient says that she is noncompliant with her medications. Asked line chest x-ray showed no acute cardiopulmonary process. EKG showed normal sinus rhythm with no ST-T wave abnormalities. Laboratory data showed WBC 11.7 hemoglobin 17.5 and platelets 181 D-dimer is not elevated at 0.38 BUN 5 and creatinine 0.32 and blood sugar is 182 Triglycerides 465, total cholesterol 274 and LDL 184, lipase 180 and serum alcohol level is 197 Patient was started on heparin drip. Was continued on telemetry monitoring and serial EKG and troponin 3 negative. He was seen by cardiology and it was no further workup at this time. Continue with current cardiac medications and counseled for medication complaints. Smoking cessation and alcohol abuse has been counseled extensively. Monitor for withdrawal symptoms. Patient will be tried on Pepcid twice a day and he wants to follow with cardiology and primary care physician as an outpatient. PHYSICAL EXAMINATION: Patient is lying in the bed comfortably, no acute distress, awake alert and oriented.. HEENT: Normocephalic. Neck is supple. Pupils reactive. Nostrils clear. Oral cavity is moist. Neck reveals no JVD, carotid bruits, or thyromegaly. CHEST EXAMINATION: Trachea is central. Symmetrical expansion. Lung altamirano clear to auscultation and percussion. CARDIAC: Normal S1, S2 with no gallops. No murmurs ABDOMEN: Soft. Bowel sounds normal. No organomegaly. No abdominal bruits. Extremities: reveal no edema. No clubbing or cyanosis Neurologically awake, alert, oriented x3 with well-coordinated movements. No focal deficits noted Skin: No rash or skin lesions. Psychiatric: Coperative. Nonsuicidal Musculoskeletal: No joint swelling or deformity. Normal range of motion. This is what is reviewed. . Patient Condition at Discharge: Fair Plan - Discharge Summary Discharge Rx Participant: Yes New Discharge Prescriptions: Continue Montelukast [Singulair] 10 mg PO DAILY Albuterol Sulfate [Ventolin HFA] 2 puff INHALATION RT-Q4H PRN PRN Reason: Shortness Of Breath Metoprolol Tartrate [Lopressor] 25 mg PO BID #60 tab metFORMIN HCL 500 mg PO DAILY hydrOXYzine pamoate [hydrOXYzine PAMOATE] 25 mg PO BID PRN PRN Reason: Anxiety Fluticasone/Salmeterol [Advair 250-50 Diskus] 1 puff INHALATION RT-BID Cymbalta 1 dose PO DIRECTED Aspirin 81 mg PO DAILY #30 chew Nitroglycerin Sl Tabs [Nitrostat] 0.4 mg SUBLINGUAL Q5M PRN #30 tab PRN Reason: Chest Pain Albuterol Nebulized [Ventolin Nebulized] 2.5 mg INHALATION RT-Q8H PRN PRN Reason: Shortness Of Breath Atorvastatin [Lipitor] 80 mg PO DAILY Prasugrel HCl 10 mg PO DAILY Famotidine [Pepcid] 20 mg PO BID #30 tab Discontinued Ibuprofen [Motrin] 600 mg PO Q8HR PRN PRN Reason: Pain Prasugrel [Effient] 10 mg PO DAILY #90 tab Discharge Medication List Montelukast [Singulair] 10 mg PO DAILY 03/25/19 [History] Albuterol Sulfate [Ventolin HFA] 2 puff INHALATION RT-Q4H PRN 12/31/19 [History] Cymbalta 1 dose PO DIRECTED 07/15/20 [History] Aspirin 81 mg PO DAILY #30 chew 07/17/20 [Rx] Metoprolol Tartrate [Lopressor] 25 mg PO BID #60 tab 07/17/20 [Rx] Nitroglycerin Sl Tabs [Nitrostat] 0.4 mg SUBLINGUAL Q5M PRN #30 tab 07/17/20 [Rx] Albuterol Nebulized [Ventolin Nebulized] 2.5 mg INHALATION RT-Q8H PRN 10/06/20 [History] Atorvastatin [Lipitor] 80 mg PO DAILY 10/06/20 [History] Fluticasone/Salmeterol [Advair 250-50 Diskus] 1 puff INHALATION RT-BID 10/06/20 [History] Prasugrel HCl 10 mg PO DAILY 10/06/20 [History] hydrOXYzine pamoate [hydrOXYzine PAMOATE] 25 mg PO BID PRN 10/06/20 [History] metFORMIN HCL 500 mg PO DAILY 10/06/20 [History] Famotidine [Pepcid] 20 mg PO BID #30 tab 10/07/20 [Rx] Follow up Appointment(s)/Referral(s): Clarita Wasserman MD [STAFF PHYSICIAN] - 2 Weeks Tracey Freire MD [Primary Care Provider] - 1-2 days Discharge Disposition: HOME SELF-CARE
== END 2020-10-07 14:51 | disposition home or self-care (01) ==
LOC: EC 20:24 → 6NMEDSUR 22:47
PROVIDERS: ADMIT Hospitalist; ATTEND Hospitalist
DX: F10.129 Alcohol abuse with intoxication, unspecified (principal); Y90.6 Blood alcohol level of 120-199 mg/100 ml; R07.2 Precordial pain; R10.13 Epigastric pain; E78.5 Hyperlipidemia, unspecified; K21.9 Gastro-esophageal reflux disease without esophagitis; I25.2 Old myocardial infarction; G47.33 Obstructive sleep apnea (adult) (pediatric); I25.110 Atherosclerotic heart disease of native coronary artery with unstable angina pectoris; F17.210 Nicotine dependence, cigarettes, uncomplicated; M41.9 Scoliosis, unspecified; G89.29 Other chronic pain; M54.9 Dorsalgia, unspecified; F12.90 Cannabis use, unspecified, uncomplicated; J45.909 Unspecified asthma, uncomplicated; F32.9 Major depressive disorder, single episode, unspecified; F41.9 Anxiety disorder, unspecified; R11.2 Nausea with vomiting, unspecified; Z91.14 Patient's other noncompliance with medication regimen; Z79.02 Long term (current) use of antithrombotics/antiplatelets; Z79.82 Long term (current) use of aspirin; Z79.84 Long term (current) use of oral hypoglycemic drugs; Z79.899 Other long term (current) drug therapy; Z88.0 Allergy status to penicillin; Z95.5 Presence of coronary angioplasty implant and graft; Z71.41 Alcohol abuse counseling and surveillance of alcoholic; Z71.6 Tobacco abuse counseling
CPT/HCPCS: 99291; 96366 ×2; 93005 ×2; 96365; 96375; 36415; 94640; 85379; 83880; 80061; 80053; 82550; 83690; 83735; 84484 ×2; 85025; 85610; 85730 ×2; 83721; 71046; G0378 ×2; G0480; S4990; J1644 ×2; 80320; 99285

== ENCOUNTER → 2021-07-01 | Outpatient (CLI) | payer OTHER ==
[2021-07-01 17:23] LABS: Basophils # (A) 0.06 X 10*3/uL (0.00-0.10); Basophils % (A) 0.5 %; Eosinophils # (A) 0.09 X 10*3/uL (0.04-0.35); Eosinophils % (A) 0.7 %; HCT 46.4 % (37.2-46.3); HGB 15.4 g/dL (12.0-15.0); Immature Grans, Automated 0.7 %; Lymphocytes # (A) 3.15 X 10*3/uL (0.90-5.00); Lymphocytes % (A) 26.1 %; MCH 31.1 pg (27.0-32.0); MCHC 33.2 g/dL (32.0-37.0); MCV 93.7 fL (80.0-97.0); Monocytes # (A) 0.77 X 10*3/uL (0.20-1.00); Monocytes % (A) 6.4 %; NRBC Per 100 WBC 0 /100 WBCS (0.0-0.0); Neutrophils % (A) 65.6 %; Platelet Count 160 X 10*3/uL (140-440); RBC 4.95 X 10*6/uL (4.10-5.20); RDW 13.6 % (11.5-14.5); WBC 12.05 X 10*3/uL (4.50-10.00)
== END | disposition home or self-care (01) ==
LOC: LABPAT 07:53
PROVIDERS: ATTEND Obstetrics & Gynecology Obstetrics
DX: Z01.812 Encounter for preprocedural laboratory examination (principal); N92.0 Excessive and frequent menstruation with regular cycle; I10 Essential (primary) hypertension; I21.3 ST elevation (STEMI) myocardial infarction of unspecified site
CPT/HCPCS: 85025; 93005

== ENCOUNTER 2021-07-21 15:11 | Emergency (ER) | payer OTHER ==
[2021-07-21 16:05] VITALS: BP 115/76; PULSE 78; RESP 18; TEMP 98.1
[2021-07-21 16:32] LABS: Basophils # (A) 0.1 k/uL (0-0.2); Basophils % (A) 1 %; Eosinophils # (A) 0.1 k/uL (0-0.7); Eosinophils % (A) 1 %; HCT 49.2 % (34.0-46.0); HGB 16.2 gm/dL (11.4-16.0); Lymphocytes # (A) 2.2 k/uL (1.0-4.8); Lymphocytes % (A) 25 %; MCH 32.2 pg (25.0-35.0); MCHC 32.8 g/dL (31.0-37.0); MCV 98.1 fL (80.0-100.0); Mean Platelet Volume 11.6; Monocytes # (A) 0.4 k/uL (0-1.0); Monocytes % (A) 5 %; Neutrophils % (A) 67 %; RBC 5.02 m/uL (3.80-5.40); RDW 14.1 % (11.5-15.5)
[2021-07-21 16:39] LABS: ALT 62 U/L (4-34); AST 39 U/L (14-36); African American GFR (CKD) >90 (>60 ml/min/1.73 sqM); Albumin 3.8 g/dL (3.5-5.0); Alkaline Phosphatase 88 U/L (38-126); Anion Gap 8 mmol/L; Blood Urea Nitrogen 14 mg/dL (7-17); Carbon Dioxide 21 mmol/L (22-30); Chloride 107 mmol/L (98-107); Glucose 159 mg/dL (74-99); Magnesium 1.7 mg/dL (1.6-2.3); Non-African American GFR(CKD) >90 (>60 ml/min/1.73 sqM); Potassium 3.7 mmol/L (3.5-5.1); Sodium 136 mmol/L (137-145); Total Bilirubin 0.4 mg/dL (0.2-1.3); Total Protein 6.3 g/dL (6.3-8.2)
[2021-07-21 16:47] LABS: Prothrombin Time 10.4 sec (9.0-12.0)
[2021-07-21 16:57] LABS: Large Platelets Present; Platelet Count 152 k/uL (150-450)
--- NOTE | 2021-07-21 18:06 | XR ---
EXAMINATION TYPE: XR chest 2V DATE OF EXAM: 07/21/2021 COMPARISON: 10/06/2020 HISTORY: Chest pain TECHNIQUE: Frontal and lateral views of the chest are obtained. FINDINGS: There is no focal air space opacity, pleural effusion, or pneumothorax seen. The cardiac silhouette size is within normal limits. The osseous structures are intact. IMPRESSION: No acute cardiopulmonary process.
[2021-07-21] MEDS ORDERED: ASPIRIN 81 MG PO STA (21:05)
--- NOTE | 2021-07-21 21:08 | ED ---
Chest Pain HPI - General Chief Complaint: Chest Pain Stated Complaint: Chest Pain Time Seen by Provider: 07/21/21 20:58 Source: patient, RN notes reviewed Mode of arrival: ambulatory Limitations: no limitations - History of Present Illness Initial Comments: This is a pleasant 46-year-old female history diabetes. She presents to the emergency department complaining of left anterior chest pain which is been present for 2 weeks. She states it's been constant, stabbing, no radiation, no alleviating or exacerbating factors. She does sense that she has some shortness of breath. No history of blood clots. No history of recent surgeries. No history of immobilization. No headache, no fever or chills, no changes in vision or hearing, no sore throat or difficulty with speech, no neck pain, no abdominal pain, no nausea or vomiting, no changes in urination or bowel movements, no numbness or tingling, no extremity pain, no skin rashes or lesions. The patient is a cigarette smoker. MD Complaint: chest pain - Related Data Home Medications Medication Instructions Recorded Confirmed Montelukast [Singulair] 10 mg PO DAILY 03/25/19 07/07/21 Albuterol Sulfate [Ventolin HFA] 2 puff INHALATION RT-Q4H PRN 12/31/19 07/07/21 hydrOXYzine pamoate [hydrOXYzine 25 mg PO BID PRN 10/06/20 07/07/21 PAMOATE] Metoprolol Tartrate [Lopressor] 25 mg PO DAILY 07/07/21 07/07/21 Jackson-3 Fatty Acids/Fish Oil [Fish 1 each PO DAILY 07/07/21 07/07/21 Oil 1,000 mg Softgel] Previous Rx's Medication Instructions Recorded Famotidine [Pepcid] 20 mg PO BID #30 tab 10/07/20 Allergies Allergy/AdvReac Type Severity Reaction Status Date / Time Penicillins Allergy Unknown Hives, Verified 07/21/21 16:04 Fever, Swellingand unknown other reaction peanut Allergy Rash/Hives Verified 07/21/21 16:04 Review of Systems ROS Statement: Those systems with pertinent positive or pertinent negative responses have been documented in the HPI. ROS Other: All systems not noted in ROS Statement are negative. EKG Findings - EKG Comments: EKG Findings:: EKG done at 1541 and read by the ED attending physician reveals sinus rhythm with a rate of 71, normal intervals, normal axis, no acute ST or T- wave changes. Poor R-wave progression. When compared to the previous study from 07/01/2021 there are no significant changes Past Medical History Past Medical History: Asthma, GERD/Reflux, Myocardial Infarction ([place]), Sleep Apnea/CPAP/BIPAP Additional Past Medical History / Comment(s): scoliosis, back pain, frequent diarrhea, wearing brace right knee. Last Myocardial Infarction Date:: 2020 History of Any Multi-Drug Resistant Organisms: None Reported Past Surgical History: Back Surgery, Heart Catheterization With Stent Past Anesthesia/Blood Transfusion Reactions: Motion Sickness Additional Past Anesthesia/Blood Transfusion Reaction / Comment(s): patient has never received anesthesia. Date of Last Stent Placement:: July 14, 2020 Past Psychological History: Anxiety Smoking Status: Current every day smoker - Past Family History Mother Family Medical History: Unable to Obtain Additional Family Medical History / Comment(s): pt states unknown family hx. General Exam Limitations: no limitations Course Vital Signs 07/21/21 16:01 Temperature 98.1 F Pulse Rate 78 Respiratory 18 Rate Blood Pressure 115/76 O2 Sat by Pulse 95 Oximetry Chest Pain MDM - Differential Diagnosis AMI, ACS, PE, Pericarditis, Pericardial Tamponade, Pneumonia, Pleurisy-Other, Chest Wall Syndrome - MDM Note that this patient had been in the waiting room over 5.5 hours before I saw her. Patient had a negative troponin -- had the chest wall pain for some 3 weeks. She does sense some shortness of breath but is in no respiratory distress. Patient is on a beta truong. I'm going to add on a d-dimer and runny second troponin. Probable discharge. AMA Documentation: I, personally, had a discussion with the patient concerning their presumed diagnoses and my recommendations regarding available options for treatment. The patient understand the risks and benefits of the treatment options presented and also understands the risks of not following these recommendations and leaving the hospital against medical advice. The patient clearly has capacity to make an informed decision regarding further treatment at this time and is electing to sign out against my medical advice. Follow up arrangements were discussed with the patient and the patient was advised to consider returning to the emergency department or seeking further care should they have a worsening of their medical condition, if they should develop new or concerning symptoms, or if they should change their mind about receiving further medical care. Patient was told to return to the ER for any signs or symptoms worsen. Told to return immediately if any other problems arise. All questions answered. Phani atment plan discussed. Patient in agreement Every effort has been made to ensure accuracy of this dictation. However, due to the limitations of electronic medical records and dictation devices, errors in charting still occur. Rail Grinder, Dr. Stiles Disposition Clinical Impression: Chest pain, Left against medical advice Disposition: Left Against Medical Advice Instructions (If sedation given, give patient instructions): Chest Pain (ED) Additional Instructions: Follow-up with your regular physician as directed. Return to the ER immediately if any symptoms worsen, new symptoms arise, or any other problems develop. Is patient prescribed a controlled substance at d/c from ED?: No Referrals: Angella Albright FNPBC [Family Provider] - 1-2 days Time of Disposition: 21:50
== END 2021-07-21 21:46 | disposition left against medical advice (07) ==
LOC: EC 15:11
DX: R07.89 Other chest pain (principal); J45.909 Unspecified asthma, uncomplicated; K21.9 Gastro-esophageal reflux disease without esophagitis; Z79.83 Long term (current) use of bisphosphonates; Z82.49 Family history of ischemic heart disease and other diseases of the circulatory system; F17.200 Nicotine dependence, unspecified, uncomplicated; Z88.0 Allergy status to penicillin; Z91.010 Allergy to peanuts
CPT/HCPCS: 36415; 71046; 80053; 83735; 84484; 85025; 85379; 85610; 85730; 93005